=== PATIENT | female | born 1935 | race Caucasian/White ===

== ENCOUNTER → 2020-05-16 | Outpatient (CLI) | payer MEDICARE, OTHER, SELFPAY ==
[2020-05-16 17:00] LABS: Absolute Lymphocyte Count 1.04 X10^3/uL (0.83-4.51); Absolute Neutrophil Count 3.8 X10^3/uL (2.0-7.7); Basophil# 0.03 X10^3/uL; Basophil% 0.5 % (0-1); Eosinophil# 0.21 X10^3/uL; Eosinophils% 3.7 % (0-5); Hematocrit 33.8 % (37-47); Hemoglobin 9.9 g/dL (12.0-15.0); Lymphocyte # 1.04 X10^3/ul (4.0); Lymphocyte % 18.5 % (19-41); Mean Corp Hgb Conc 29.3 g/dL (32-36); Mean Corpuscular Hgb 24.8 pg (27.0-32.0); Mean Corpuscular Volume 84.5 fL (81-99); Monocyte# 0.51 X10^3/uL; Monocyte% 9.1 % (0-10); NRBC Flagged by Analyzer 0 % (0-5); Neutrophil # 3.81 X10^3/uL (2.7-7.7); Platelet Count 259 K/mm3 (150-450); RBC Distribution Width CV 15.1 % (11.6-14.6); RBC Distribution Width SD 46.5 fl (35.1-43.9); White Blood Count 5.6 K/mm3 (4.4-11.0)
[2020-05-16 17:16] LABS: Vitamin B12 264 pg/mL (211-911)
[2020-05-16 17:26] LABS: Anion Gap 5 (5-15); BUN 16 mg/dL (7-18); BUN/Creat Ratio 19.1 RATIO (10-20); Calcium,Total 8.9 mg/dL (8.5-10.1); Chloride 107 mmol/L (98-107); Creatinine, Serum 0.84 mg/dL (0.55-1.02); EST Glomerular Filtration Rate 69 mL/min (>60); Est Glom Filt Rate - Afr Amer 84 mL/min (>60); Glucose 97 mg/dL (74-106); Potassium 3.6 mmol/L (3.5-5.1); Sodium Level 140 mmol/L (136-145); Thyroid Stim Hormone (TSH) 1.66 uIU/mL (0.358-3.74)
== END | disposition home or self-care (01) ==
LOC: BFHLAB 14:12
PROVIDERS: Visit Provider Family Medicine
DX: I10 Essential (primary) hypertension (principal); R53.83 Other fatigue
CPT/HCPCS: 36415; 80048; 82607; 84443; 85025

== ENCOUNTER → 2020-07-24 11:16 | Outpatient (CLI) | payer MEDICARE, OTHER, SELFPAY ==
[2020-07-24 15:01] LABS: Absolute Lymphocyte Count 1.03 X10^3/uL (0.83-4.51); Basophil# 0.03 X10^3/uL; Basophil% 0.6 % (0-1); Eosinophil# 0.21 X10^3/uL; Eosinophils% 4.5 % (0-5); Hematocrit 34.2 % (37-47); Hemoglobin 10.2 g/dL (12.0-15.0); Lymphocyte # 1.03 X10^3/ul (4.0); Lymphocyte % 21.9 % (19-41); Mean Corp Hgb Conc 29.8 g/dL (32-36); Mean Corpuscular Hgb 25.1 pg (27.0-32.0); Monocyte# 0.45 X10^3/uL; Monocyte% 9.6 % (0-10); NRBC Flagged by Analyzer 0 % (0-5); Neutrophil # 2.98 X10^3/uL (2.7-7.7); Neutrophil % 63.2 % (47-70); Platelet Count 261 K/mm3 (150-450); RBC Distribution Width CV 15.7 % (11.6-14.6); Red Blood Count 4.07 M/mm3 (4.2-5.4); White Blood Count 4.7 K/mm3 (4.4-11.0)
[2020-07-24 15:21] LABS: Vitamin B12 276 pg/mL (211-911)
== END ==
PROVIDERS: PCP Family Medicine; Visit Provider Family Medicine
DX: I10 Essential (primary) hypertension (principal); D51.9 Vitamin B12 deficiency anemia, unspecified
CPT/HCPCS: 36415; 82607; 85025

== ENCOUNTER 2020-10-02 15:55 | Emergency (ER) | payer MEDICARE, OTHER, SELFPAY ==
[2020-10-02 15:56] VITALS: BP 154/97; PULSE 101; RESP 18; TEMP 35.9; O2SAT 97; BMI 27.4
--- NOTE | 2020-10-02 16:15 | RAD_ITS ---
STUDY: X-RAY - UNILATERAL RIBS ( RIGHT ) WITH CHEST REASON FOR EXAM: Female, 85 years old. FELL YESTERDAY. PAIN IN RIGHT RIBS ON THE SIDE RADIATING TO BACK. TECHNIQUE - RIBS: 3 view(s) of the ribs. TECHNIQUE - CHEST: Single PA view of the chest. COMPARISON: None. FINDINGS - RIBS: Normal visualized ribs without a demonstrated fracture. FINDINGS - CHEST: The interstitium in the lung bases is slightly prominent likely due to chronic scarring. No consolidation or pleural effusion or pneumothorax is seen. Interstitial scarring is also present in the right upper lobe. There is no demonstrated pleural abnormality. Normal size heart. Normal mediastinum and brett. Normal visualized pulmonary arteries. There is atherosclerotic calcification of the aortic arch with tortuosity. There are diffuse degenerative changes of the visualized thoracic spine. Dextroscoliosis of the lumbar spine is present. Normal visualized ribs, clavicles, and shoulders. There is no demonstrated abnormality of the visualized soft tissue structures of the upper abdomen. RAD/Ribs Uni Min 3V w/PA Chest IMPRESSION: RIBS: Normal x-ray examination of the ribs. CHEST: Degenerative changes, as described above. No demonstrated acute cardiopulmonary process. Electronically Signed: Jh Heller MD at 16:57 EST , Service support ,
--- NOTE | 2020-10-02 16:59 | ED.DCSUM_ITS ---
- ER Visit Summary Date of Service: 10/02/20 Chief Complaint: [Fall] History of Present Illness: The patient is a 85 F [ presents to the emergency department with complaint of a fall that occurred yesterday morning] patient states that she had stepped off her front stoop to get the paper and she slipped in the snow and fell down onto her buttocks and she believes that the right posterior ribs struck the edge of the stoop. Patient did not strike her head. No loss of consciousness. She denies any neck pain. Patient initially did not think much of it and she did relatively well yesterday however when she woke up this morning she had worsening pain. Patient rates her pain an 8 out of 10. Pain is worse with movement. She denies feeling short of breath. She is not anticoagulated. She is not had any hematuria. She denies abdominal pain. Physical Examination: [HEENT-PERRLA, EOMI. Cranial nerves II through XII grossly intact. TMs clear. Mucous membranes moist. No adenopathy. Cardiovascular-regular rate and rhythm without murmur or ectopy Lungs-clear to auscultation, chest wall stable without crepitus or subcu emphysema Abdomen-normoactive bowel sounds, soft, nontender, no rebound or rigidity, no peritoneal signs. Back exam-no significant tenderness over the thoracic spine. She does have tenderness palpation over the right posterior ribs that seems to reproduce her pain. There is no subcu emphysema. No ecchymosis or bruising noted. Extremities-intact ?4, normal range of motion, normal pulses, atraumatic] Test Results: [X-rays of the right ribs obtained 4 views read by myself and radiology as no acute fractures and no evidence of pneumothorax.] Emergency Department Course and Treatment: [Patient did not anything for pain in the department.] Treatment Plan: [Patient will be given incentive spirometer and a prescription for [place] for pain. At this point patient has no abdominal pain and she is not had any hematuria and it has been over 24 hours since the time of injury I do not feel any further imaging is indicated. I have low suspicion of solid organ injury and I discussed this with the patient and she is in agreement. Will follow up with her primary care physician 3 to 5 days. Patient advised to return if worsening pain, hemoptysis, hematuria, shortness of breath, or condition should worsen anyway.] Disposition: [Discharged home in stable condition] Impression: [Rib contusion-possible occult fracture Mechanical fall] This note was generated with Infrascale dictation software. It may contain incorrect words, spelling, and punctuation that were not noted in review of the chart prior to signing ED Disposition - Plan for ED Patient: Referrals: Chelsea Awad MD [Primary Care Provider] -
--- NOTE | 2020-10-02 17:09 | ED.DEP ---
ED Disposition - Plan for ED Patient: Instructions: ED Mechanical Fall, ED Rib Contusion or Minor Fracture Prescriptions: Hydrocodone Bitart/Apap 5-325 [[place] 5MG-325MG] 1 tab PO Q4H PRN PRN 2 Days #10 tab PRN Reason: Pain Prescription Printed Referrals: Chelsea Awad MD [Primary Care Provider] - 5-7 Days
[2020-10-02 18:00] VITALS: PULSE 71; RESP 16; O2SAT 99
--- NOTE | 2020-10-02 18:01 | ED.RN ---
THIS NURSE REVIEWED D/C INSTRUCTIONS WITH PT AND VISITOR. PT VERBALIZED UNDERSTANDING OF INSTRUCTIONS. PT DENIES FURTHER NEEDS OR QUESTIONS AT THIS TIME. PT AMBULATES FROM ROOM ON OWN WITHOUT ASSISTANCE FROM STAFF
== END 2020-10-02 18:02 | disposition home or self-care (01) ==
PROVIDERS: Emergency Provider Emergency Medicine; PCP Family Medicine
DX: S20.219A Contusion of unspecified front wall of thorax, initial encounter (principal); I10 Essential (primary) hypertension; Z79.899 Other long term (current) drug therapy; W00.1XXA Fall from stairs and steps due to ice and snow, initial encounter; Y93.89 Activity, other specified; Y92.008 Other place in unspecified non-institutional (private) residence as the place of occurrence of the external cause; Y99.8 Other external cause status
CPT/HCPCS: 71101; 99282

== ENCOUNTER → 2021-05-20 | Outpatient (CLI) | payer MEDICARE, OTHER, SELFPAY | END | disposition home or self-care (01) | LOC: LABSPEC 10:01 | PROVIDERS: PCP Family Medicine; Referring Provider Family Medicine; Visit Provider Family Medicine | DX: R19.7 Diarrhea, unspecified (principal) | CPT/HCPCS: 87493 ==

== ENCOUNTER → 2021-06-02 14:17 | Outpatient (CLI) | payer MEDICARE, OTHER, SELFPAY ==
--- NOTE | 2021-06-02 14:20 | CT_ITS ---
STUDY: CT ABDOMEN AND PELVIS WITH CONTRAST REASON FOR EXAM: Minimal degenerative changes on the lumbar spine with mild levoscoliosis., 85 years old. Bloating. Concern for ovarian pathology. RADIATION DOSAGE (If Supplied By Facility): CTDIvol = ( 17.91 ) mGy, DLP = ( 876.52 ) mGycm TECHNIQUE: Transaxial images were obtained from the dome of the diaphragm to the symphysis pubis with oral contrast. 100 mL of ISOVUE-300 was administered. Sagittal and coronal images were reconstructed. Individualized dose optimization techniques were used for this CT. COMPARISON: None. FINDINGS: The visualized lung bases are unremarkable. The visualized portions of the heart are within normal limits. Normal liver. Normal gallbladder and extrahepatic biliary system. Normal spleen. Normal pancreas. Normal bilateral adrenal glands. Normal right kidney. Normal left kidney. Normal ureters. Small hiatal hernia. The stomach is otherwise grossly unremarkable. Normal small intestine. Ethmoid diverticulosis without acute inflammatory change. The colon is otherwise grossly normal. The appendix is visualized and appears normal. Normal abdominal aorta. Normal inferior vena cava. Normal retroperitoneum. Normal urinary bladder. The uterine is normal in size. There is a small calcification in the fundus. No adnexal mass. No pelvic lymphadenopathy. No free air or free fluid seen within the peritoneal cavity. Evidence of midline surgical scar. The abdominal wall is otherwise unremarkable. CT/Abdomen/Pelvis WITH Contrast IMPRESSION: 1. Sigmoid diverticulosis with mild wall thickening thought to be chronic change. There is no acute inflammatory process. 2. Small calcification within the uterus. The uterus and adnexa are otherwise unremarkable. 3. Scoliosis and mild degenerative changes of the lumbar spine Electronically Signed: Miguel Angel Kim DO at 16:10 EDT Tel [phone], Service support ,
[2021-06-02 14:56] LABS: CREATININE FINGERSTICK 0.9 mg/dL (0.55-1.02); EGFR FINGERSTICK > 60.0000 mL/min (>60)
== END ==
PROVIDERS: PCP Family Medicine; Referring Provider Family Medicine; Visit Provider Family Medicine
DX: R14.0 Abdominal distension (gaseous) (principal)
CPT/HCPCS: 74177; Q9967; A4216

== ENCOUNTER 2021-07-14 11:32 | Day surgery (SDC) | payer MEDICARE, OTHER, SELFPAY ==
[2021-07-14] VITALS (7 sets, daily range): BP systolic 110–144; BP diastolic 67–89; PULSE 65–99; RESP 16; TEMP 35.7–36.8; O2SAT 96–100; BMI 27.8
--- NOTE | 2021-07-14 | IMM_PTH ---
PATIENT: MAYKEL KAY LOC: EN U#:[id number] AGE/SX: 85/F ROOM: RE07/14/[address]: Dr. Santi Woods DO : 1935 BED: DIS: 07/14/2021 SPEC #: [id number] RECD: 07/17/21 11:25 STATUS: ARIADNA REHoward #: [id number] LISA: 07/14/21 00:[address]: Santi Woods DEPT: IMMUNOHISTOCHEMISTRY RECD BY: Leland Feldman ENTERED: 07/17/21 11:27 SP TYPE: IMMUNO OTHR DR: Dr. Chelsea Awad MD Tissues: Gastric mucous membrane Procedures: Synapto (add) CD138 (add) CD20 (add) CD45 (add) CD5 (add) CD56 (add) CD79A (add) CHROMO (add) CK8 (add) KAPPA (add) KI-67 (add) LAMBDA (add) Vimentin (add) H.PYLORI (add) Pankeratin (add) CD3 (initial) PHYSICIAN & [address] [address] SPECIMEN INFORMATION: Tissue Source: Antral polyp Clinical Info: Abdominal pain, diarrhea Specimen Number: [id number] CPT code: 13660, 63531 x15 METHODOLOGY: Deparaffinized sections of prefer/formalin-fixed tissue or PAP/DQ stained slides are incubated with monoclonal/polyclonal antibodies/oligonucleotide probes. Localization is made via biotin free immunoperoxidase method. Appropriate controls are performed and reacted as expected. Results on target cell population are indicated in the following table: RESULTS: ANTIBODY / CLONE RESULT Block B CD3 (PS1) negative CD5 (SP10) negative CD20 (L26) negative CD45 (RP2/18) negative CD79a (11E3) negative H Pylori (polyclonal) negative Ki-67 (30-9) positive, low (~2%) AE1-3 (AE1/AE3/PCK26) positive CK8 (94yardG11) positive Vimentin (V9) negative CD138 (B-A38) negative Mora (polyclonal) negative Lambda (polyclonal) negative Chromo (LK2H10) positive Synapto (polyclonal) positive CD56 (123C3.D5) positive, weak These tests were developed and their performance characteristics determined by Laboratory. They may not have been cleared or approved by the U.S. Food and Drug Administration. The FDA has determined that such clearance or approval is not necessary. The above immunohistochemical/dualISH markers are ordered and reviewed by the Pathologist. INTERPRETATION: B. Antral polyp, biopsy: Well differentiated neuroendocrine tumor (carcinoid tumor). - negative for H. pylori organisms. SJ:tamar 07/21/2021
[2021-07-14] MEDS: Lactated Ringers 1,000 ML 15 ML IV (11:50)
--- NOTE | 2021-07-14 12:45 | EGD_PTH ---
PATIENT: MAYKEL KAY LOC: EN U#:[id number] AGE/SX: 85/F ROOM: RE07/14/[address]: Dr. Santi Woods DO : 1935 BED: DIS: 07/14/2021 SPEC #: [id number] RECD: 07/14/21 15:06 STATUS: ARIADNA REHoward #: [id number] LISA: 07/14/21 12:[address]: Santi Woods DEPT: SURGICAL PATHOLOGY RECD BY: Coby Cunha ENTERED: 07/15/21 08:41 SP TYPE: EGD BIOPSY OT DR: Dr. Chelsea Awad MD Tissues: A - Duodenum, NOS B - Gastric mucous membrane C - Stomach, NOS D - COLON BIOPSY Procedures: Trichrome (control) Special Stain Group II Surgery Specimen Level IV Alcian Blue/PAS (control) HEADER OPERATION: EGD colonoscopy PRE-OP DIAGNOSIS: Abdominal pain, diarrhea TISSUE SUBMITTED: A. Duodenum biopsy, B. Antral polyp biopsy, C. GE junction biopsy, D. Random colon biopsy MICROSCOPIC DIAGNOSIS A. Duodenum, biopsy: Fragments of duodenal mucosa with mild nonspecific chronic inflammation. B. Antral polyp, biopsy: Well differentiated neuroendocrine tumor (carcinoid tumor) arising in the background of hyperplastic/inflammatory polyp. See comment. C. GE junction, biopsy: Fragments of gastroesophageal mucosa with chronic inflammation. Intestinal metaplasia (goblet cell metaplasia) not identified. See comment. D. Colon, random biopsy: Focal changes consistent with collagenous colitis. See comment. SJ:rg 07/21/2021 COMMENT B. Immunohistochemistry ([id number]) supports the above diagnosis. The results of immunohistochemistry for Helicobacter pylori will be reported separately ([id number]). C. Alcian blue/PAS stain with matched control is used in the evaluation of the specimen. D. Trichrome stain with matched control is used in the evaluation of the specimen and shows focal thickening of subepithelial collagen band, consistent with collagenous colitis. MICROSCOPIC DESCRIPTION Slides are reviewed. GROSS DESCRIPTION A. Received is one container labeled with the patient name and designated duodenum. The specimen consists of multiple irregular fragments of light taylor soft tissue that in aggregate measure 0.5 x 0.3 x 0.1 cm. The specimen is totally submitted in one cassette. B. Received is one container labeled with the patient name and designated antral polyp. The specimen consists of multiple irregular fragments of light taylor soft tissue that in aggregate measure 1 x 0.5 x 0.1 cm. The specimen is totally submitted in one cassette. C. Received is one container labeled with the patient name and designated GE junction biopsy. The specimen consists of multiple irregular fragments of light taylor soft tissue that in aggregate measure 0.5 x 0.5 x 0.1 cm. The specimen is totally submitted in one cassette. D. Received is one container labeled with the patient name and designated random colon biopsy. The specimen consists of multiple irregular fragments of light taylor soft tissue that in aggregate measure 2 x 1 x 0.1 cm. The specimen is totally submitted in one cassette. / SJ:cc 07/15/21 TC:1 [facility]: 68242 x4, 10210 x2 ADDENDUM ADDENDUM ADDENDUM ADDENDUM ADDENDUM ADDENDUM ADDENDUM ADDENDUM ADDENDUM ADDENDUM ADDENDUM ADDENDUM ADDENDUM ADDENDUM ADDENDUM ADDENDUM ADDENDUM ADDENDUM 01/28/2022 10:16 ADDENDUM 01/28/2022 10:16 ADDENDUM 01/28/2022 10:16 ADDENDUM 01/28/2022 10:16 ADDENDUM 01/28/2022 10:16 This addendum is added to incorporate an outside pathology consultation report. The case was examined at [facility] (#[id number]) and the following diagnosis was rendered. A. Duodenum, biopsy: Small bowel mucosa, no significant pathologic changes. B. Antral polyp, biopsy: Well-differentiated neuroendocrine tumor (1.2 mm but present at deep margin of biopsy) in background of hyperplastic antral mucosa. C. GE junction, biopsy: Squamous and columnar mucosa with mild chronic inflammation. No goblet cells present. D. Colon, random biopsy: Colonic mucosa with focal changes suggestive of collagenous colitis. Please see complete above mentioned consultation report in EMR
--- NOTE | 2021-07-14 12:51 | PCM.HP.BLA ---
History and Physical Date of Admission: 07/14/21 Details: MAYKEL KAY, is a 85 F who presents to the office today for She has been having difficulty with loose stools upwards of three times a day. This is something that has been an issue for several years. Takes immodium and this works for a couple of days. Difficulty with bloating, belching and grumbling. She states it comes and goes - indicating flares but isn't able to give more information. Denies blood or mucous. CT performed 06/02/21 with findings Sigmoid diverticulosis with mild wall thickening thought to be chronic change. There is no acute inflammatory process. Small calcification within the uterus. Scoliosis and mild degenerative changes of the lumbar spine. Colonoscopy and EGD performed 2016 stated she had an elongated colon and was not able to visualize entire colon. Barium swallow performed with no abnormals. ROS Const Constitutional: Positive for fatigue and weight change ENT ENT: Positive for hearing loss and nasal congestion Gastro GI: Positive for abdominal pain, bloating, change in bowel habits, diarrhea and heartburn Musc Musculoskeletal: Positive for joint pain, back pain, muscle weakness, numbness, stiffness, tingling and Arthritis Neuro Neurology: Positive for numbness and tingling Endo Endocrine: Positive for fatigue and weight change Exam Const General: cooperative and comfortable Nutritional Appearance: average body habitus and well nourished [facility] Head: normal to inspection Ears: hearing grossly normal bilaterally Nose: external nose normal Face and sinus: normal facial exam Mouth: oral mucosae normal Throat: posterior oropharynx normal Eyes General: appearance normal, both eyes and all related structures Neck Neck: normal visual inspection Chest Chest palpation & inspection: normal inspection of the chest and normal palpation of entire chest wall Resp Effort & Inspection: normal respiratory effort Auscultation: Bilateral: Clear to Auscultation Cardio Palpation: normal PMI Rate: regular rate Rhythm: regular rhythm GI Inspection: normal to inspection Auscultation: normal bowel sounds Percussion: normal to percussion Palpation: no hepatosplenomegaly Skin General: no rashes or lesions noted Neuro General: patient alert Extrem General: normal to inspection Psych Affect: normal affect Quality Reporting Tobacco Screening ([facility] 138) Smoking Status: Unknown if ever smoked Assessment and Plan Assessment and Plan (1) Abdominal pain: Status: Acute Orders: Orders: Colonoscopy 07/07/21 EGD 07/07/21 Plan - Dr. Hancock Friend, DO: Differential diagnosis for abdominal pain would be peptic ulcer disease, atypical esophagitis, gastritis. Also deserves diagnosis could be chronic ischemic colitis, functional abdominal pain secondary to bacterial overgrowth, diverticular disease with or without segmental colitis. She will have an evaluation of her upper and lower GI tract. (2) Diarrhea: Status: Acute Plan - Dr. Hancock Friend, DO: The differential diagnosis for diarrhea would be microscopic colitis, lymphocytic colitis less likely inflammatory bowel disease or infectious colitis. We will perform a colonoscopy and evaluated lower GI tract into the terminal ileum. We will take random biopsies well. We will also take stool cultures, fecal lactoferrin and C. difficile. I have re-examined the patient. There are no clinical changes since date of exam.
--- NOTE | 2022-04-23 06:38 | OP.EGD_ITS ---
Patient Name: Deb Bartholomew Procedure Date: 07/14/2021 12:51 PM Date of : 1935 Age: 85 Procedure: Upper GI endoscopy Indications: Epigastric abdominal pain, Functional Dyspepsia Providers: Santi Woods DO Medicines: General Anesthesia, See the Anesthesia note for documentation of the administered medications Patient Profile: This is an 85 year old female. Refer to note in patient chart for documentation of history and physical. Patient has symptoms of acute abdominal cramping and chronic abdominal distention. Complications: No immediate complications. Procedure: Pre-Anesthesia Assessment: - Prior to the procedure, a History and Physical was performed, and patient medications and allergies were reviewed. The patient is competent. The risks and benefits of the procedure and the sedation options and risks were discussed with the patient. All questions were answered and informed consent was obtained. Patient identification and proposed procedure were verified by the physician in the pre-procedure area. Mental Status Examination: alert and oriented. Airway Examination: normal oropharyngeal airway and neck mobility. Respiratory Examination: clear to auscultation. CV Examination: normal. Prophylactic Antibiotics: The patient does not require prophylactic antibiotics. Prior Anticoagulants: The patient has taken no previous anticoagulant or antiplatelet agents. ASA Grade Assessment: II - A patient with mild systemic disease. After reviewing the risks and benefits, the patient was deemed in satisfactory condition to undergo the procedure. The anesthesia plan was to use moderate sedation / analgesia (conscious sedation). Immediately prior to administration of medications, the patient was re-assessed for adequacy to receive sedatives. The heart rate, respiratory rate, oxygen saturations, blood pressure, adequacy of pulmonary ventilation, and response to care were monitored throughout the procedure. The physical status of the patient was re-assessed after the procedure. After obtaining informed consent, the endoscope was passed under direct vision. Throughout the procedure, the patient's blood pressure, pulse, and oxygen saturations were monitored continuously. The gastroscope was introduced through the and advanced to the. The gastroscope was introduced through the mouth, and advanced to the second part of duodenum. The upper GI endoscopy was accomplished without difficulty. The patient tolerated the procedure well. Moderate Sedation: Moderate (conscious) sedation was administered by the endoscopy nurse and supervised by the endoscopist. The patient's oxygen saturation, heart rate, blood pressure and response to care were monitored. Total physician intraservice time was 15 minutes. Scope In: 1:01:27 PM Scope Out: 1:10:00 PM Total Procedure Duration Time 0 hours 8 minutes 33 seconds Findings: LA Grade A (one or more mucosal breaks less than 5 mm, not extending between tops of 2 mucosal folds) esophagitis with no bleeding was found 34 to 35 cm from the incisors. Biopsies were taken with a cold forceps for histology. Verification of patient identification for the specimen was done. Estimated blood loss was minimal. A few 5 mm sessile polyps with no stigmata of recent bleeding were found in the stomach. These polyps were removed with a hot snare. Resection and retrieval were complete. Verification of patient identification for the specimen was done. Estimated blood loss was minimal. Scattered mild inflammation characterized by congestion (edema) was found in the second portion of the duodenum. Biopsies were taken with a cold forceps for histology. Verification of patient identification for the specimen was done. Estimated blood loss was minimal. Biopsies were taken with a cold forceps for histology. Verification of patient identification for the specimen was done. Estimated blood loss was minimal. Impression: - LA Grade A reflux esophagitis. Biopsied. - A few gastric polyps. Resected and retrieved. - Duodenitis. Biopsied. Recommendation: - Discharge patient to home. - Resume previous diet. - Continue present medications. - Await pathology results. - Return to my office in 2 weeks. Procedure Code(s): --- Professional --- 07018, 59, Esophagogastroduodenoscopy, flexible, transoral; with removal of tumor(s), polyp(s), or other lesion(s) by snare technique 72603, 59, Esophagogastroduodenoscopy, flexible, transoral; with biopsy, single or multiple G0500, Moderate sedation services provided by the same physician or other qualified health childcare director performing a gastrointestinal endoscopic service that sedation supports, requiring the presence of an independent trained observer to assist in the monitoring of the patient's level of consciousness and physiological status; initial 15 minutes of intra-service time; patient age 5 years or older (additional time may be reported with 47137, as appropriate) Diagnosis Code(s): --- Professional --- K21.0, Gastro-esophageal reflux disease with esophagitis K31.7, Polyp of stomach and duodenum K29.80, Duodenitis without bleeding R10.13, Epigastric pain K30, Functional dyspepsia CPT copyright 2017 [employer]. All rights reserved. The codes documented in this report are preliminary and upon customer engagement manager review may be revised to meet current compliance requirements. Santi Woods DO 07/14/2021 1:44:38 PM This report has been signed electronically. Number of Addenda: 1 Note Initiated On: 07/14/2021 12:51 PM Addendum Number: 1 Addendum Date: 04/23/2022 6:33:17 AM MAC was used instead of moderate sedation for this patient. Santi Woods DO 04/23/2022 6:33:24 AM This report has been signed electronically.
--- NOTE | 2022-04-23 06:38 | OP.COLON_ITS ---
Patient Name: Deb Bartholomew Procedure Date: 07/14/2021 1:11 PM Date of : 1935 Age: 85 Procedure: Colonoscopy Indications: Chronic diarrhea, Clinically significant diarrhea of unexplained origin Providers: Santi Woods DO Medicines: See the Anesthesia note for documentation of the administered medications Patient Profile: This is an 85 year old female. Refer to note in patient chart for documentation of history and physical. Patient has symptoms of acute abdominal cramping and chronic abdominal distention. Last Colonoscopy: 10 years ago. Complications: No immediate complications. Procedure: Pre-Anesthesia Assessment: - Prior to the procedure, a History and Physical was performed, and patient medications and allergies were reviewed. The patient is competent. The risks and benefits of the procedure and the sedation options and risks were discussed with the patient. All questions were answered and informed consent was obtained. Patient identification and proposed procedure were verified by the physician in the pre-procedure area. Mental Status Examination: alert and oriented. Airway Examination: normal oropharyngeal airway and neck mobility. Respiratory Examination: clear to auscultation. CV Examination: normal. Prophylactic Antibiotics: The patient does not require prophylactic antibiotics. Prior Anticoagulants: The patient has taken no previous anticoagulant or antiplatelet agents. ASA Grade Assessment: II - A patient with mild systemic disease. After reviewing the risks and benefits, the patient was deemed in satisfactory condition to undergo the procedure. The anesthesia plan was to use moderate sedation / analgesia (conscious sedation). Immediately prior to administration of medications, the patient was re-assessed for adequacy to receive sedatives. The heart rate, respiratory rate, oxygen saturations, blood pressure, adequacy of pulmonary ventilation, and response to care were monitored throughout the procedure. The physical status of the patient was re-assessed after the procedure. After I obtained informed consent, the scope was passed under direct vision. Throughout the procedure, the patient's blood pressure, pulse, and oxygen saturations were monitored continuously. The Colonoscope was introduced through the and advanced to. The Colonoscope was introduced through the anus and advanced to the terminal ileum. The colonoscopy was performed without difficulty. The patient tolerated the procedure well. The quality of the bowel preparation was good. Moderate Sedation: Moderate (conscious) sedation was administered by the endoscopy nurse and supervised by the endoscopist. The patient's oxygen saturation, heart rate, blood pressure and response to care were monitored. Total physician intraservice time was 15 minutes. Scope In: 1:15:56 PM Scope Withdrawal Time 0 hours 13 minutes 6 seconds Scope Out: 1:36:42 PM Total Procedure Duration Time 0 hours 20 minutes 46 seconds Findings: The perianal and digital rectal examinations were normal. Scattered small and large-mouthed diverticula were found in the sigmoid colon, descending colon and splenic flexure. There was no evidence of diverticular bleeding. An area of moderately congested mucosa was found in the sigmoid colon, in the descending colon, at the splenic flexure, in the transverse colon, at the hepatic flexure and in the ascending colon. Biopsies were taken with a cold forceps for histology. Verification of patient identification for the specimen was done. Estimated blood loss was minimal. The terminal ileum appeared normal. Impression: - Moderate diverticulosis in the sigmoid colon, in the descending colon and at the splenic flexure. There was no evidence of diverticular bleeding. - Congested mucosa in the sigmoid colon, in the descending colon, at the splenic flexure, in the transverse colon, at the hepatic flexure and in the ascending colon. Biopsied. - The examined portion of the ileum was normal. Recommendation: - Discharge patient to home. - Resume previous diet. - Continue present medications. - Await pathology results. - Use Entocort EC (budesonide) 6 mg PO one time per day for 8 weeks. - No repeat colonoscopy due to current age (66 years or older). Procedure Code(s): --- Professional --- 59853, Colonoscopy, flexible; with biopsy, single or multiple G0500, Moderate sedation services provided by the same physician or other qualified health after school caregiver performing a gastrointestinal endoscopic service that sedation supports, requiring the presence of an independent trained observer to assist in the monitoring of the patient's level of consciousness and physiological status; initial 15 minutes of intra-service time; patient age 5 years or older (additional time may be reported with 81633, as appropriate) CPT copyright 2017 [employer]. All rights reserved. The codes documented in this report are preliminary and upon material reprocessing associate review may be revised to meet current compliance requirements. Santi Woods DO 07/14/2021 1:52:03 PM This report has been signed electronically. Number of Addenda: 1 Note Initiated On: 07/14/2021 1:11 PM Addendum Number: 1 Addendum Date: 04/23/2022 6:33:35 AM MAC was used instead of moderate sedation for this patient. Santi Woods DO 04/23/2022 6:33:40 AM This report has been signed electronically.
== END 2021-07-14 14:32 | disposition home or self-care (01) ==
LOC: EN 11:33 → AC 11:35
PROVIDERS: PCP Family Medicine; Referring Provider Family Medicine; Visit Provider Internal Medicine Gastroenterology
PROC: 0DJD8ZZ Inspection of Lower Intestinal Tract, Via Natural or Artificial Opening Endoscopic (ICD-10-PCS; CPT 45378; principal; 2021-07-14 12:40)
DX: D3A.092 Benign carcinoid tumor of the stomach (principal); K21.00 Gastro-esophageal reflux disease with esophagitis, without bleeding; K57.30 Diverticulosis of large intestine without perforation or abscess without bleeding; K29.80 Duodenitis without bleeding; M19.90 Unspecified osteoarthritis, unspecified site; I10 Essential (primary) hypertension; Z79.899 Other long term (current) drug therapy
CPT/HCPCS: 43239; 45380; 88305; 88313; 88341; 88342; J7120; J2405

== ENCOUNTER → 2021-07-28 14:49 | Outpatient (CLI) | payer MEDICARE, OTHER, SELFPAY ==
--- NOTE | 2021-07-28 14:30 | PET_ITS ---
EXAMINATION: FDG PET-CT INDICATIONS: An 85-year-old female with reported history of neuroendocrine neoplasm presenting for initial staging examination. COMPARISON EXAMINATION: CT of the abdomen-pelvis report dated 06/02/21 TECHNIQUE: Following the intravenous administration of 15.4 mCi of F-18 deoxyglucose via the right antecubital fossa, multiplanar image acquisitions of the neck, chest, abdomen and pelvis to level of mid thigh, obtained at one hour post radiopharmaceutical administration contemporaneously interpreted with the current CT of the neck, chest, abdomen and pelvis, to level of mid thigh, dated 07/28/[address] of the abdomen-pelvis report dated 06/02/21 reveals: BLOOD GLUCOSE LEVEL:?? 102 mg/dl?HEIGHT:?62 inches?WEIGHT: 150 lbs. FINDINGS: 1. There is no quantitative scintigraphic evidence of abnormal increased glucose metabolism on meticulous inspection of whole body acquisitions to include all three axis reconstructions. 2. Normal physiologic distribution of the radiopharmaceutical is apparent in the hepatic and splenic parenchyma, both renal units, bladder and visualized intestinal tract. The visualized portion of the cerebral cortical-subcortical structures demonstrate symmetric and preserved glucose metabolism. Diffuse radiopharmaceutical concentration is noted in all four quadrants of the abdomen and pelvis. Pertinent CT findings are as follows: CHEST: There is atherosclerotic calcification defined in the thoracic aorta without evidence of dilatation-aneurysm formation. Bilateral axillary soft tissue densities with fatty hilus are ametabolic. There are no parenchymal densities-nodules defined in the right and left hemithorax with discernible increased FDG uptake. ABDOMEN AND PELVIS: There is atherosclerotic calcification defined in the abdominal aorta without evidence of dilatation-aneurysm formation. Pelvic arterial calcification is defined. A fat containing paraumbilical hernia is encountered. Colonic diverticulosis is visualized without evidence of diverticulitis. Calcification is observed in the lower pelvis associated with the uterus without evidence of increased tracer uptake. SKELETAL: Degenerative changes are noted in the cervical, thoracic and lumbar spine without evidence of increased radiopharmaceutical concentration. PET/PET/CT Tumor Base -Thigh Init IMPRESSION: 1. NEGATIVE EXAMINATION. There is no definitive quantitative scintigraphic evidence of viable neoplasm. Electronic Signature Hugh Black, D.O. Accurate Quantification of SUVs for this report are calculated using the exclusive [employer], (U.S. Patent No. [id number], [id number] 983). Standardization and correction of the FDG SUV metric exclusively available with [employer] intellectual property, allow for vendor non-specific objective quantitative sequential FDG PET-CT comparison and otherwise unobtainable optimization of the sensitivity and specificity of the examination. Electronically Signed: Hugh Weeks DO at 17:14 EST Tel , Service support ,
== END ==
PROVIDERS: PCP Family Medicine; Referring Provider Internal Medicine Gastroenterology; Visit Provider Internal Medicine Gastroenterology
DX: C7A.8 Other malignant neuroendocrine tumors (principal)
CPT/HCPCS: 78815; A9552

== ENCOUNTER 2021-11-27 10:12 | Day surgery (SDC) | payer MEDICARE, OTHER, SELFPAY ==
[2021-11-27] VITALS (9 sets, daily range): BP systolic 88–147; BP diastolic 7–93; PULSE 70–79; RESP 16; TEMP 36.4–36.9; O2SAT 97–100; BMI 28.2
[2021-11-27] MEDS: Lactated Ringers 1,000 ML 15 ML IV (10:54)
--- NOTE | 2021-11-27 11:30 | EGD_PTH ---
PATIENT: MAYKEL KAY LOC: EN U#:[id number] AGE/SX: 86/F ROOM: RE11/27/[address]: Dr. Santi Woods DO : 1935 BED: DIS: 11/27/2021 SPEC #: [id number] RECD: 11/27/21 13:26 STATUS: ARIADNA MARS #: [id number] LISA: 11/27/21 11:[address]: Santi Woods DEPT: SURGICAL PATHOLOGY RECD BY: Coby Cunha ENTERED: 11/30/21 09:33 SP TYPE: EGD BIOPSY OT DR: Dr. Chelsea Awad MD Tissues: Gastric mucous membrane Procedures: Surgery Specimen Level IV HEADER OPERATION: EGD ([facility]) PRE-OP DIAGNOSIS: Neuroendocrine cancer, diarrhea TISSUE SUBMITTED: Gastric polyp MICROSCOPIC DIAGNOSIS Gastric polyp, biopsy: Fragments of hyperplastic gastric polyp with chronic inflammation. AM:tamar 12/01/2021 COMMENT The results of immunohistochemistry for Helicobacter pylori will be reported separately ([id number]). MICROSCOPIC DESCRIPTION Slides are reviewed. GROSS DESCRIPTION Received in fixative is one container labeled with the patient's name and designated gastric polyp biopsy. The specimen consists of multiple irregular fragments of light taylor soft tissue that in aggregate measure 2 x 1 x 0.1 cm. The specimen is totally submitted in one cassette. / AM:tamar 11/30/2021 TC:3 CPT: 65786
--- NOTE | 2021-11-27 11:30 | IMM_PTH ---
PATIENT: MAYKEL KAY LOC: EN U#:[id number] AGE/SX: 86/F ROOM: RE11/27/[address]: Dr. Santi Woods DO : 1935 BED: DIS: 11/27/2021 SPEC #: [id number] RECD: 11/30/21 09:40 STATUS: ARIADNA REHoward #: [id number] LISA: 11/27/21 11:[address]: Santi Woods DEPT: IMMUNOHISTOCHEMISTRY RECD BY: Jesika Harris ENTERED: 11/30/21 09:42 SP TYPE: IMMUNO OTHR DR: Dr. Chelsea Awad MD Tissues: Stomach, NOS Procedures: H Pylori (initial) PHYSICIAN & INSTITUTION [place] [id number] SPECIMEN INFORMATION: Tissue Source: Gastric polyp Clinical Info: Neuroendocrine cancer, diarrhea Specimen Number: [id number] CPT code: 67835 METHODOLOGY: Deparaffinized sections of prefer/formalin-fixed tissue or PAP/DQ stained slides are incubated with monoclonal/polyclonal antibodies/oligonucleotide probes. Localization is made via biotin free immunoperoxidase method. Appropriate controls are performed and reacted as expected. Results on target cell population are indicated in the following table: RESULTS: ANTIBODY / CLONE RESULT H Pylori (polyclonal) negative These tests were developed and their performance characteristics determined by [facility]. They may not have been cleared or approved by the U.S. Food and Drug Administration. The FDA has determined that such clearance or approval is not necessary. The above immunohistochemical/dualISH markers are ordered and reviewed by the Pathologist. INTERPRETATION: Gastric polyp, biopsy: Negative for Helicobacter pylori organisms. AM:tamar 12/01/2021
--- NOTE | 2021-11-27 12:23 | OP.EGD_ITS ---
Patient Name: Deb Bartholomew Procedure Date: 11/27/2021 10:22 AM Date of : 1935 Age: 86 Procedure: Upper GI endoscopy Indications: Epigastric abdominal pain Providers: Santi Woods DO Medicines: See the Anesthesia note for documentation of the administered medications Patient Profile: This is an 86 year old female. Refer to note in patient chart for documentation of history and physical. Patient has symptoms. Complications: No immediate complications. Procedure: Pre-Anesthesia Assessment: - Prior to the procedure, a History and Physical was performed, and patient medications and allergies were reviewed. The patient is competent. The risks and benefits of the procedure and the sedation options and risks were discussed with the patient. All questions were answered and informed consent was obtained. Patient identification and proposed procedure were verified by the physician. Mental Status Examination: alert and oriented. Airway Examination: normal oropharyngeal airway and neck mobility. Respiratory Examination: clear to auscultation. CV Examination: normal. Prophylactic Antibiotics: The patient does not require prophylactic antibiotics. Prior Anticoagulants: The patient has taken no previous anticoagulant or antiplatelet agents. ASA Grade Assessment: II - A patient with mild systemic disease. After reviewing the risks and benefits, the patient was deemed in satisfactory condition to undergo the procedure. The anesthesia plan was to use moderate sedation / analgesia (conscious sedation). Immediately prior to administration of medications, the patient was re-assessed for adequacy to receive sedatives. The heart rate, respiratory rate, oxygen saturations, blood pressure, adequacy of pulmonary ventilation, and response to care were monitored throughout the procedure. The physical status of the patient was re-assessed after the procedure. After obtaining informed consent, the endoscope was passed under direct vision. Throughout the procedure, the patient's blood pressure, pulse, and oxygen saturations were monitored continuously. The gastroscope was introduced through the mouth, and advanced to the second part of duodenum. The upper GI endoscopy was accomplished without difficulty. The patient tolerated the procedure well. Moderate Sedation: Moderate (conscious) sedation was administered by the endoscopy nurse and supervised by the endoscopist. The patient's oxygen saturation, heart rate, blood pressure and response to care were monitored. Total physician intraservice time was 15 minutes. Scope In: 11:52:50 AM Scope Out: 12:10:33 PM Total Procedure Duration Time 0 hours 17 minutes 43 seconds Findings: The examined esophagus was normal. A single 5 mm sessile polyp with no bleeding and no stigmata of recent bleeding was found in the gastric body. Polypectomy was attempted, initially using a hot snare. Polyp resection was incomplete with this device. This intervention then required a different device and polypectomy technique. The polyp was removed with a hot snare. Resection and retrieval were complete. The second portion of the duodenum was normal. Impression: - Normal esophagus. - A single gastric polyp. Resected and retrieved. - Normal second portion of the duodenum. Recommendation: - Discharge patient to home. - Resume previous diet. - Continue present medications. - Await pathology results. - Repeat upper endoscopy in 1 year for surveillance based on pathology results. Procedure Code(s): --- Professional --- 07960, Esophagogastroduodenoscopy, flexible, transoral; with removal of tumor(s), polyp(s), or other lesion(s) by snare technique 84629, 59, Moderate sedation services provided by the same physician or other qualified health daytime caregiver performing the diagnostic or therapeutic service that the sedation supports, requiring the presence of an independent trained observer to assist in the monitoring of the patient's level of consciousness and physiological status; initial 15 minutes of intraservice time, patient age 5 years or older CPT copyright 2017 [employer]. All rights reserved. The codes documented in this report are preliminary and upon remote coders review may be revised to meet current compliance requirements. Santi Woods DO 11/27/2021 12:22:56 PM This report has been signed electronically. Number of Addenda: 1 Note Initiated On: 11/27/2021 10:22 AM Addendum Number: 1 Addendum Date: 05/20/2022 6:43:57 AM MAC was used as sedation for this procedure. Santi Woods DO 05/20/2022 6:44:01 AM This report has been signed electronically.
--- NOTE | 2021-11-27 12:24 | OP.CCLET_ITS ---
05/20/2022 Chelsea Awad [id number] [facility] [address] [address] Re : Upper GI endoscopy procedure for Deb Bartholomew Dear Dr. Awad This procedure was performed on Saturday, November 27, 2021. My impressions and recommendations are as follows: Impressions : - Normal esophagus. - A single gastric polyp. Resected and retrieved. - Normal second portion of the duodenum. Recommendations : - Discharge patient to home. - Resume previous diet. - Continue present medications. - Await pathology results. - Repeat upper endoscopy in 1 year for surveillance based on pathology results. My findings are described in the full procedure note, which is enclosed. If I can be of further assistance, please feel free to contact me at . Sincerely, Santi Woods, 11/27/2021 12:22:56 PM This report has been signed electronically.
--- NOTE | 2021-11-27 13:00 | HP.PCM_ITS ---
History and Physical Date of Admission: 11/27/21 Chief Complaint: Diarrhea, stomach tumor Details: MAYKEL KAY, is a 86 F who presents to the office today for f/u gastric neuroendocrine tumor, chronic diarrhea, and discussion following her recent evaluation by Dr Tejeda at [facility] on 10/30/21. She established with our practice 06/19/21 for diarrhea; she was having multiple bouts of diarrhea daily for several years. She also had bloating, gas/belching, and RLQ pain. Her diarrhea improved significantly with budesonide 6 mg daily, but today she notes stools have been loose again for the past 3 wks. Has diarrhea as soon as she gets up and then again later in the morning. She has consistently had RLQ pain, it bothers her when she's lying in bed, also has right sciatica type pain when lying down; Dr Woods felt the RLQ pain was due more to osteoarthritis than of GI origin. Ongoing bloating and belching. CT 06/02/21 found diverticulosis 07/14/21 EGD and colonoscopy EGD: LA Grade A esophagitis, gastric polyps, duodenitis. Biopsy: neg H pylori; well differentiated neuroendocrine tumor (carcinoid tumor) arising in the b ackground of hyperplastic/inflammatory polyp. Colonoscopy: moderate diverticulosis in sigmoid colon, ascending colon and splenic flexure. Congested mucosa multiple regions. Biopsy: collagenous colitis Dr. Patel saw her 08/03/21 for neuroendocrine cancer: refer to [facility] medical (Dr. Tejeda) and surgical oncology (Dr. Rivera) for further work-up of subtype and management recommendations. Per Dr Tejeda's note recommendation is for Dr Woods to repeat EGD. Pt reports plan is to try to remove any remaining NET. Dr Tejeda has ordered triple phase CT which is scheduled for December 14; pt has virtual f/u with [facility] on December 30. She is anxious to know if those appt should be changed if EGD not yet done. ROS Const Constitutional: No fatigue ENT ENT: Positive for nasal congestion; No difficulty swallowing Gastro GI: Positive for abdominal pain, bloating, diarrhea, heartburn and excessive flatus; No belching, change in bowel habits, change in stool character, coffee ground emesis, constipation, cramping, difficulty swallowing, feeling full early, incontinent of stools, Vomiting blood/hematemesis, Blood in stool, loose stools, Black,tarry stools, nausea/dyspepsia, pain with swallowing, vomiting or other Musc Musculoskeletal: Positive for joint pain, back pain, stiffness, Arthritis and leg pain at night Skin Skin: No yellowing of the eye or itchy eyes Psych Psychiatric: No anxiety and No depression Endo Endocrine: No fatigue Aller/Imm Allergy/Immunologic: No itchy eyes Kuldip/Lymp Hematologic/Lymphatic: No easy bleeding or easy bruising Exam Const General: cooperative, comfortable, well developed and well groomed GI Inspection: obesity Palpation: soft and nontender Quality Reporting Tobacco Screening ([facility] 138) Smoking Status: Never smoker Assessment and Plan Assessment and Plan (1) Neuroendocrine cancer: Status: Acute (2) Diarrhea: Status: Acute Qualifiers: Diarrhea type: unspecified type Qualified Code(s): R19.7 - Diarrhea, unspecified Plan - Julia Wan TECHNOLOGIES DIVISION CHAIR, TECHNOLOGIES DIVISION CHAIR-C: 86-year-old female with chronic diarrhea and diagnosis of neuroendocrine tumor found in a biopsied gastric polyp. She is being evaluated by [facility], they have ordered CT triple phase. I will discuss case with Dr Woods so we can plan repeat EGD. Patient is anxious to know if she needs to change the dates of her CT and virtual visit follow-up with [facility] if she cannot have EGD done prior to those appointments. Budesonide 6 mg daily had been controlling her diarrhea until the past few weeks when it has become loose again, I will discuss that also with Dr. Woods, and will call patient to discuss. Plan Details Other Medications: I have re-examined the patient. There are no clinical changes since date of exam.
== END 2021-11-27 23:59 | disposition home or self-care (01) ==
LOC: EN 10:13 → AC 10:14
PROVIDERS: PCP Family Medicine; Referring Provider Family Medicine; Visit Provider Internal Medicine Gastroenterology
PROC: 0DJ08ZZ Inspection of Upper Intestinal Tract, Via Natural or Artificial Opening Endoscopic (ICD-10-PCS; CPT 43235; principal; 2021-11-27 11:25)
DX: K31.7 Polyp of stomach and duodenum (principal); R10.13 Epigastric pain; E66.9 Obesity, unspecified; I10 Essential (primary) hypertension; M19.90 Unspecified osteoarthritis, unspecified site; Z79.899 Other long term (current) drug therapy
CPT/HCPCS: 43251; 88305; 88342; J7120

== ENCOUNTER → 2021-12-14 12:55 | Outpatient (CLI) | payer MEDICARE, OTHER, SELFPAY ==
--- NOTE | 2021-12-14 13:05 | CT_ITS ---
EXAM: CT ABDOMEN AND PELVIS WITH INTRAVENOUS CONTRAST CLINICAL INDICATION: NEUROENDOCRINE CA TECHNIQUE: Helically acquired images were obtained of the abdomen and pelvis with and without intravenous contrast. This CT exam was performed using one or more of the following dose reduction techniques: automated exposure control, adjustment of the mA and/or kV according to patient size, and/or use of iterative reconstruction technique. This report was created using idemama report generation technology. Delayed imaging was performed. 3 phase exam. CONTRAST: IV 100mL Isovue-300 RADIATION DOSE: CTDIvol = 10.46 mGy, DLP = 1499.41 mGy-cm COMPARISON: CT-PET images and report from July 28, 2021 showing no evidence of neoplasm, mentioned small fat-containing periumbilical hernia, colonic diverticulosis, calcification pelvis, degenerative spine changes. CT report from June 02, 2021 mentioned sigmoid diverticulosis, small uterine calcification, scoliosis and degenerative spine changes. FINDINGS: LOWER THORAX: Unremarkable. Lung bases are clear. No cardiomegaly. No significant pericardial effusion. ABDOMEN: LIVER: Unremarkable. Homogeneous. No focal mass. GALLBLADDER AND BILE DUCTS: Tortuous gallbladder with a fold, no visible mass or stone. The common duct is 6 mm, upper limits of normal. No gallbladder distention or wall edema. PANCREAS: Unremarkable. No focal cystic or solid mass. SPLEEN: Unremarkable. Normal size without focal cystic or solid mass. ADRENALS: Unremarkable. No nodules. KIDNEYS AND URETERS: Unremarkable. Normal renal size and position. No hydronephrosis. STOMACH AND BOWEL: Mild scattered gas in small bowel. Moderate stool in the right colon. Mild gas and stool in much of the mid colon. Mild sigmoid diverticulosis, no evidence of diverticulitis. No stomach or bowel distention. PELVIS: APPENDIX: No evidence of acute appendicitis. BLADDER: Unremarkable. REPRODUCTIVE: Small punctate calcification in the uterus. No suspicious adnexal mass. ABDOMEN and PELVIS: INTRAPERITONEAL SPACE: Unremarkable. No ascites or other fluid collection. No free air. BONES/JOINTS: Mild degenerative changes at L4-L5. No spinal stenosis. No suspicious lytic or blastic abnormality. SOFT TISSUES: Small fat-containing umbilical hernia. Postoperative changes of the left paramedian ventral abdominal wall. VASCULATURE: Unremarkable. Abdominal aorta is non-dilated. LYMPH NODES: Unremarkable. No enlarged lymph nodes. CT/CT Abd/Pelvis W/WO Contrast IMPRESSION: No acute findings in the abdomen or pelvis. Mild sigmoid diverticulosis. No obvious acute inflammatory changes. Collapsed segments of sigmoid, cannot exclude very early or mild colitis but it is not convincing. Electronically Signed: Kalpana Cobb MD at 8:19 EDT ,
[2021-12-15 07:33] LABS: CREATININE FINGERSTICK 0.98 mg/dL (0.55-1.02); EGFR FINGERSTICK 57 mL/min (>60)
== END ==
PROVIDERS: PCP Family Medicine
DX: C7A.8 Other malignant neuroendocrine tumors (principal)
CPT/HCPCS: 74178; Q9967

== ENCOUNTER → 2022-06-02 | Outpatient (CLI) | payer MEDICARE, OTHER, SELFPAY ==
[2022-06-02 12:10] LABS: Absolute Lymphocyte Count 0.77 X10^3/uL (0.83-4.51); Absolute Neutrophil Count 4.7 X10^3/uL (2.0-7.7); Basophil# 0.02 X10^3/uL; Basophil% 0.3 % (0-1); Eosinophil# 0.14 X10^3/uL; Eosinophils% 2.3 % (0-5); Hematocrit 39.7 % (37-47); Lymphocyte # 0.77 X10^3/ul (0.83-4.51); Lymphocyte % 12.5 % (19-41); Mean Corp Hgb Conc 32.7 g/dL (32-36); Mean Corpuscular Hgb 31.1 pg (27.0-32.0); Mean Platelet Vol. 11.1 fl (6.2-12.0); Monocyte# 0.54 X10^3/uL; Monocyte% 8.8 % (0-10); NRBC Flagged by Analyzer 0 % (0-5); Neutrophil # 4.69 X10^3/uL (2.7-7.7); Neutrophil % 75.9 % (47-70); Platelet Count 214 K/mm3 (150-450); RBC Distribution Width CV 14.4 % (11.6-14.6); RBC Distribution Width SD 50.3 fl (35.1-43.9); Red Blood Count 4.18 M/mm3 (4.2-5.4); White Blood Count 6.2 K/mm3 (4.4-11.0)
[2022-06-02 12:24] LABS: Vitamin B12 199 pg/mL (211-911)
[2022-06-02 12:26] LABS: ALB/GLOB Ratio 1.1 RATIO (0.9-2.4); AST(SGOT) 16 U/L (15-37); Alanine Aminotransfer ALT/SGPT 23 U/L (13-56); Albumin, Serum 3.6 g/dL (3.2-5.0); Alkaline Phosphatase 62 U/L (45-117); Anion Gap 6 (5-15); BUN 15 mg/dL (7-18); BUN/Creat Ratio 13.3 RATIO (10-20); Calcium,Total 9.2 mg/dL (8.5-10.1); Chloride 107 mmol/L (98-107); Cholesterol 189 mg/dL (200); Creatinine, Serum 1.13 mg/dL (0.55-1.02); EST Glomerular Filtration Rate 49 mL/min (>60); Est Glom Filt Rate - Afr Amer 59 mL/min (>60); Globulin 3.3 g/dL (2.2-4.2); Glucose 94 mg/dL (74-106); High Density Lipoprotein 60 mg/dL; Potassium 3.8 mmol/L (3.5-5.1); Protein, Total 6.9 g/dL (6.4-8.2); Sodium Level 141 mmol/L (136-145); Triglycerides 213 mg/dL; Very Low Density Lipoprotein 43 mg/dL (5-40)
== END | disposition home or self-care (01) ==
LOC: BFHLAB 09:29
PROVIDERS: PCP Family Medicine; Visit Provider Family Medicine
DX: Z00.00 Encounter for general adult medical examination without abnormal findings (principal); I10 Essential (primary) hypertension; D51.9 Vitamin B12 deficiency anemia, unspecified
CPT/HCPCS: 36415; 80053; 80061; 82607; 85025

== ENCOUNTER → 2022-06-15 | Outpatient (CLI) | payer MEDICARE, OTHER, SELFPAY ==
[2022-06-19 09:47] LABS: Gastrin, Serum 2480 pg/mL (0-115)
== END | disposition home or self-care (01) ==
LOC: LAB 16:18
PROVIDERS: PCP Family Medicine; Visit Provider Nurse Practitioner Adult Health
DX: C7A.8 Other malignant neuroendocrine tumors (principal)
CPT/HCPCS: 36415; 82941

== ENCOUNTER → 2023-06-10 | Outpatient (CLI) | payer MEDICARE, OTHER, SELFPAY ==
[2023-06-10 12:26] LABS: Absolute Lymphocyte Count 0.81 X10^3/uL (0.83-4.51); Absolute Neutrophil Count 4.6 X10^3/uL (2.0-7.7); Basophil# 0.03 X10^3/uL; Basophil% 0.5 % (0-1); Eosinophil# 0.19 X10^3/uL; Eosinophils% 3.1 % (0-5); Hematocrit 45.6 % (37-47); Hemoglobin 14.8 g/dL (12.0-15.0); Lymphocyte # 0.81 X10^3/ul (0.83-4.51); Lymphocyte % 13.3 % (19-41); Mean Corp Hgb Conc 32.5 g/dL (32-36); Mean Corpuscular Hgb 31.7 pg (27.0-32.0); Mean Corpuscular Volume 97.6 fL (81-99); Monocyte# 0.45 X10^3/uL; Monocyte% 7.4 % (0-10); NRBC Flagged by Analyzer 0 % (0-5); Neutrophil # 4.59 X10^3/uL (2.7-7.7); Neutrophil % 75.5 % (47-70); Platelet Count 247 K/mm3 (150-450); RBC Distribution Width CV 13.1 % (11.6-14.6); RBC Distribution Width SD 47.1 fl (35.1-43.9); Red Blood Count 4.67 M/mm3 (4.2-5.4); White Blood Count 6.1 K/mm3 (4.4-11.0)
[2023-06-10 12:49] LABS: Vitamin B12 316 pg/mL (211-911)
[2023-06-10 13:21] LABS: ALB/GLOB Ratio 1.1 RATIO (0.9-2.4); AST(SGOT) 13 U/L (15-37); Alanine Aminotransfer ALT/SGPT 21 U/L (13-56); Albumin, Serum 3.8 g/dL (3.2-5.0); Alkaline Phosphatase 65 U/L (45-117); Anion Gap 8 (5-15); BUN 15 mg/dL (7-18); BUN/Creat Ratio 15.2 RATIO (10-20); Calcium,Total 9.3 mg/dL (8.5-10.1); Chloride 108 mmol/L (98-107); Creatinine, Serum 0.99 mg/dL (0.55-1.02); EST Glomerular Filtration Rate 57 mL/min (>60); Est Glom Filt Rate - Afr Amer 69 mL/min (>60); Globulin 3.4 g/dL (2.2-4.2); Glucose 112 mg/dL (74-106); Potassium 3.9 mmol/L (3.5-5.1); Protein, Total 7.2 g/dL (6.4-8.2); Sodium Level 140 mmol/L (136-145)
== END | disposition home or self-care (01) ==
LOC: BFHLAB 11:12
PROVIDERS: PCP Family Medicine; Visit Provider Family Medicine
DX: Z00.00 Encounter for general adult medical examination without abnormal findings (principal); I10 Essential (primary) hypertension; D51.9 Vitamin B12 deficiency anemia, unspecified
CPT/HCPCS: 36415; 80053; 82607; 85025

== ENCOUNTER → 2023-06-10 | Outpatient (CLI) | payer MEDICARE, OTHER, SELFPAY ==
--- NOTE | 2023-06-10 12:46 | RAD_ITS ---
STUDY: X-RAY - RIGHT KNEE REASON FOR EXAM: Female, 87 years old. Knee pain. TECHNIQUE: 4 view(s) of the knee. COMPARISON: None. FINDINGS: Osteopenia. Mild medial compartmental arthrosis. Normal lateral compartment. Slight lateral tilt and subluxation of the patella with mild arthrosis of the lateral patellofemoral compartment. Slight patellar marcelo. Normal soft tissues. 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 Slight patella marcelo. No acute abnormality or erosive changes Electronically Signed: Declan De Leon MD at 13:59 EDT ,
--- NOTE | 2023-06-10 12:47 | RAD_ITS ---
INDICATION: PAIN IN KNEES EXAMINATION/TECHNIQUE: X-RAY - LEFT XR Knee Complete 4 Views or More 4 VIEWS COMPARISON: No relevant prior comparison study available FINDINGS: SOFT TISSUES: No soft tissue swelling or gas. No radiopaque foreign body. BONES/JOINTS: No acute fracture or subluxation.. Minimal marginal degenerative spurs of the medial joint compartment. Preservation of the joint space.. No sclerotic or destructive changes observed. RAD/Knee 4 or More Views IMPRESSION: Minimal degenerative arthrosis. Electronically Signed: Jamey Sepulveda MD at 15:07 EDT ,
== END | disposition home or self-care (01) ==
LOC: MTRAD 12:42
PROVIDERS: PCP Family Medicine; Referring Provider Family Medicine; Visit Provider Family Medicine
DX: Z00.00 Encounter for general adult medical examination without abnormal findings (principal); M25.561 Pain in right knee; M25.562 Pain in left knee; I10 Essential (primary) hypertension; D51.9 Vitamin B12 deficiency anemia, unspecified
CPT/HCPCS: 36415; 73564; 80053; 82607; 85025

== ENCOUNTER 2023-08-04 14:00 | Outpatient (RCR) | payer MEDICARE, OTHER, SELFPAY ==
--- NOTE | 2023-07-12 11:44 | HP.PTEVAL_ITS ---
Patient's Visit Information Visit Information Visit Information: MAYKEL KAY is a 87 year old F referred to Physical Therapy by Dr. Chelsea Awad MD with a diagnosis of Knee arthritis. Date of Evaluation: 07/12/23 Physical Therapist: Sherman Quiroga, DPT, OCS, CSCS Visit Plan Frequency: 2x /Week Duration: 4-6 Weeks Plan: 2x/week for 4-6 weeks for 1. knee B strength adn AROM NWB to WB and progression to HEP. 2. Patient using activity modifcaiton and AROM at home to manage symptoms, given quad stretch prone today and will need gastroc stretcha dn HS stretch added to this with pics. MH as needed. Subjective Subjective: January of 2022 was helping dtr move and caught toe on step while carrying boxes and crashed knees. No problems at the time. had check up lately and had x rays of knees due to pain. has achiness much of time throbbing. Walks often from home to [place] and from her condominium with her dog and walks quickly. does not hurt too much Pain this week has been 4/10 and just achy sitting. Had injections in the right 10 days ago and it didn;t help at all. Pain is anterior and worse in am. Better as day goes on. Activitiy are pretty normal, Walks and drives and has steps to basement and does those OK. Basic ADLs are no problem. shops without increased pain. Hobbies: none now., No exercise other than walking as weather permits. Sleep is not interrupted. Pain knee pain: Pain Intensity (Out of 10): 1 Comment: worse in am Objective Objective: Walks i back to PT without antalgia today. Transfers I chair and bed. steps are reciprocal but obvious pain and funcitonal weakness on R LE descending. Requires rail. R>L Pain at joint line with palpation. AROM B knees 0-130 without pain. SLR without lag. quad max tight, HS min tight at -25 90/90 test, gastroc mod tight B at 0 DF AROM. Hip and ankle AROM WFL. - scour, - ant drawer, - vlagus and varus strength R knee ext 3+ and crepitus and pain, L 4-, HS 4 B, hip abd and ext 4-, flexion 4- and anbkles are 4 B. reflexes 2/3 patella and achilles. Balance/Special Test Scores Functional Gait Assessment Score: 27 % Disability: 10.0000 Lower Extremity Functional Score: 61 Goals Goal 1:: I appropriate HEP to minimize future problems with knee pain and degeneration Goal Time Frame: 4-6 Weeks Goal 2:: Pain 0-1/10 at all times and 75% better Goal Time Frame: 4-6 Weeks Goal 3:: patient ambulate in am with out antalgia or >1/10 pain Goal Time Frame: 4-6 Weeks Rehabilitation Potential Physical Therapy Diagnosis: R>L knee achiness from degeneration effecting mood and comfort with daily activities Rehabilitation Potential: Fair Anticipated Interventions Patient/Client Instruction: Educate patient on: Condition and Plan of Care For the Purpose of:: To decrease pain, To improve nutrient delivery to tissue and To improve muscle performance and motor function Therapeutic Exercise to Include: Strength training, Flexibilty training, Passive ROM and Active ROM For the Purpose of:: To decrease pain, To increase ROM, To improve nutrient delivery to tissue, To improve muscle performance and motor function and To increase tolerance to activity/condition/position Thermo therapy (hot pack): Yes For the Purpose of:: To decrease pain and To improve nutrient delivery to tissue Text: Thank you for the opportunity to evaluate your patient. For Medicare and Medicare HMO plans, please review the plan of care and approve it. It will need to be FAXED BACK to us at [phone] for Medicare purposes. For Medicare only, by signing this I certify the plan of care. Please let me know if there are questions or concerns regarding this plan of care. Physician Signature: Date:
--- NOTE | 2023-08-04 14:45 | HP.PTDCSUM ---
Discharge Summary D/C summary: It has been my pleasure to treat MAYKEL KAY referred by Dr. Chelsea Awad MD, with the diagnosis of Knee arthritis for a total of 7 visit(s). Discharge Date: Please see the following information for a summary of their discharge status. Subjective Subjective: Doing well, therapy has really helped her. Compliant with her HEP, has a good amount of exercises. Pain knee pain: Pain Intensity (Out of 10): 0 Overall Improvement % Improvement: 85 Objective Objective/Function: Pt making progress with her therapy, and feels she has the right amount of exercises for home now(does not have ankle wt's though) Goals Goal 1:: I appropriate HEP to minimize future problems with knee pain and degeneration Goal Progress: Goal Met Goal 2:: Pain 0-1/10 at all times and 75% better Goal Progress: Goal Met Goal 3:: patient ambulate in am with out antalgia or >1/10 pain Goal Progress: Goal Met Plan Plan: PT to reassess after this session D/C Information d/c sentence: If there are questions or concerns regarding this patient's physical therapy, please feel free to call me at [phone]. Thank you for the referral of this patient. Sincerely, Sehrman Quiroga, DPT, OCS, CSCS Balance/Gait/Functional tests Balance/Special Test Scores Functional Gait Assessment Score: 27 % Disability: 10.0000 Lower Extremity Functional Score: 61 Improvement % Improvement: 85
== END 2023-08-04 19:00 | disposition home or self-care (01) ==
LOC: PT 14:00
PROVIDERS: PCP Family Medicine; Referring Provider Family Medicine; Visit Provider Family Medicine
DX: M17.10 Unilateral primary osteoarthritis, unspecified knee (principal)
CPT/HCPCS: 97110; 97161; 97164

== ENCOUNTER 2024-01-30 10:44 | Day surgery (SDC) | payer MEDICARE, OTHER, SELFPAY ==
[2024-01-30 11:06] VITALS: BP 150/82; PULSE 91; RESP 16; TEMP 36.6; O2SAT 99; BMI 27.3
[2024-01-30] MEDS: Lactated Ringers 1,000 ML 15 ML IV (11:10)
--- NOTE | 2024-01-30 11:52 | PCM.HP.BLA ---
History and Physical Date of Admission: 01/30/24 f/u neuroendocrine tumor Details: MAYKEL KAY, is a 88 F who presents to the office today for follow up. OV 5.31.24 Pt reports that she is feeling pretty well overall GI carver. Pt reports 1-2 bm per day and states that they are loose 50% of the time, but is unsure of trigger. Pt does report that she has had some new stress in her personal life. Pt would like to discuss the effects of long-term pantoprazole use and is wondering if she needs to continue taking it. Pt states that she has been experiencing an increase in knee pain. ROS Const Constitutional: No fatigue, fever(s) or weight change ENT ENT: No difficulty swallowing Gastro GI: Positive for abdominal pain, bloating, diarrhea, heartburn and excessive flatus; No belching, change in bowel habits, change in stool character, coffee ground emesis, constipation, cramping, difficulty swallowing, feeling full early, incontinent of stools, Vomiting blood/hematemesis, Blood in stool, loose stools, Black,tarry stools, nausea/dyspepsia, pain with swallowing, vomiting or other Musc Musculoskeletal: Positive for joint pain, back pain, joint swelling, Arthritis and sciatica Skin Skin: No yellowing of the eye or itchy eyes Psych Psychiatric: No anxiety and No depression Endo Endocrine: No fatigue or weight change Aller/Imm Allergy/Immunologic: No itchy eyes Kuldip/Lymp Hematologic/Lymphatic: No easy bleeding or easy bruising Exam Const General: cooperative and comfortable Orientation: alert, awake and oriented x3 Assessment and Plan Assessment and Plan (1) Neuroendocrine cancer: Status: Acute Plan: We will perform an upper endoscopy to evaluate her stomach. 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 She is on twice a day PPI therapy now. I will decrease her down to 40 mg once a day and try to titrate to off. (2) Collagenous colitis: Status: Acute Plan: Now off budesonide, bowels are ok I have examined the patient and the H&P has been reviewed. There are no clinical changes since date of exam.
--- NOTE | 2024-01-30 12:00 | EGD_PTH ---
PATIENT: MAYKEL KAY LOC: EN U#:[id number] AGE/SX: 88/F ROOM: RE01/30/[address]: Dr. Santi Woods DO : 1935 BED: DIS: 01/30/2024 SPEC #: [id number] RECD: 01/30/24 14:20 STATUS: ARIADNA MARS #: [id number] LISA: 01/30/24 12:[address]: Santi Woods DEPT: SURGICAL PATHOLOGY RECD BY: Coby Cunha ENTERED: 01/31/24 09:54 SP TYPE: EGD BIOPSY OT DR: Dr. Chelsea Awad MD Tissues: A - Gastric mucous membrane B - Gastric mucous membrane Procedures: Surgery Specimen Level IV HEADER OPERATION: EGD with polyp removal PRE-OP DIAGNOSIS: Neuroendocrine cancer, colitis TISSUE SUBMITTED: A- Gastric antrum polyp, B- Gastric body polyp MICROSCOPIC DIAGNOSIS A. Gastric antrum polyp, excisional biopsy: Hyperplastic/inflammatory polyp. See comment. B. Gastric body polyp, excisional biopsy: Fragments of Hyperplastic/inflammatory polyp. See comment. HIEN/ 02/01/2024 COMMENT B. The results of immunohistochemistry for Helicobacter pylori will be reported separately ([id number]). Please make reference to previous specimen [id number] antral polyp, biopsy with diagnosis of well differentiated neuroendocrine tumor. This case has been reviewed in consultation with Dr. Landeros who concurs with the above diagnosis. MICROSCOPIC DESCRIPTION Slides are reviewed. GROSS DESCRIPTION A. Received in fixative is one container labeled with the patient's name and designated Gastric antrum polyp. The specimen consists a pink congested polyp measuring 1.0 x 0.8 x 0.7 cm. The apparent base is inked. This specimen is serially sectioned and submitted entirely in one cassette. B. Received in fixative is one container labeled with the patient's name and designated Gastric body polyp. The specimen consists of multiple irregular fragments of light taylor soft tissue that in aggregate measure 1.0 x 0.3 x 0.1 cm. The specimen is totally submitted in one cassette. HIEN/ 01/31/2024 TC:2 CPT:98670c5
--- NOTE | 2024-01-30 12:00 | IMM_PTH ---
PATIENT: MAYKEL KAY LOC: EN U#:[id number] AGE/SX: 88/F ROOM: RE01/30/[address]: Dr. Santi Woods DO : 1935 BED: DIS: 01/30/2024 SPEC #: [id number] RECD: 01/31/24 08:52 STATUS: ARIADNA REQ #: [id number] LISA: 01/30/24 12:[address]: Santi Woods DEPT: IMMUNOHISTOCHEMISTRY RECD BY: Alber Vazquez ENTERED: 01/31/24 08:52 SP TYPE: IMMUNO OTHR DR: Dr. Chelsea Awad MD Tissues: A - Gastric mucous membrane Procedures: H Pylori (initial) PHYSICIAN & INSTITUTION [place] [id number] SPECIMEN INFORMATION: Tissue Source: B- Gastric body polyp Clinical Info: Neuroendocrine cancer, colitis Specimen Number: [id number] CPT code: 06780 METHODOLOGY: Deparaffinized sections of prefer/formalin-fixed tissue or PAP/DQ stained slides are incubated with monoclonal/polyclonal antibodies/oligonucleotide probes. Localization is made via biotin free immunoperoxidase method. Appropriate controls are performed and reacted as expected. Results on target cell population are indicated in the following table: RESULTS: ANTIBODY / CLONE RESULT Block B H Pylori (polyclonal) negative These tests were developed and their performance characteristics determined by [facility]. They may not have been cleared or approved by the U.S. Food and Drug Administration. The FDA has determined that such clearance or approval is not necessary. The above immunohistochemical/dualISH markers are ordered and reviewed by the Pathologist. INTERPRETATION: B. Gastric body polyp , biopsy: Negative for Helicobacter pylori organisms. HIEN/ 02/01/2024
--- NOTE | 2024-01-30 12:40 | OP.EGD_ITS ---
Patient Name: Deb Bartholomew Procedure Date: 01/30/2024 12:13 PM Date of : 1935 Age: 88 Procedure: Upper GI endoscopy Indications: Epigastric abdominal pain Providers: DO Marilou Arriaga MD: Chelsea Awad Medicines: Monitored Anesthesia Care Complications: No immediate complications. Procedure: Pre-Anesthesia Assessment: - Prior to the procedure, a History and Physical was performed, and patient medications and allergies were reviewed. The patient is competent. The risks and benefits of the procedure and the sedation options and risks were discussed with the patient. All questions were answered and informed consent was obtained. Patient identification and proposed procedure were verified by the physician in the pre-procedure area. Mental Status Examination: alert and oriented. Airway Examination: normal oropharyngeal airway and neck mobility. Respiratory Examination: clear to auscultation. CV Examination: normal. Prophylactic Antibiotics: The patient does not require prophylactic antibiotics. Prior Anticoagulants: The patient has taken no anticoagulant or antiplatelet agents. ASA Grade Assessment: II - A patient with mild systemic disease. After reviewing the risks and benefits, the patient was deemed in satisfactory condition to undergo the procedure. The anesthesia plan was to use monitored anesthesia care (MAC). Immediately prior to administration of medications, the patient was re-assessed for adequacy to receive sedatives. The heart rate, respiratory rate, oxygen saturations, blood pressure, adequacy of pulmonary ventilation, and response to care were monitored throughout the procedure. The physical status of the patient was re-assessed after the procedure. After obtaining informed consent, the endoscope was passed under direct vision. Throughout the procedure, the patient's blood pressure, pulse, and oxygen saturations were monitored continuously. The was introduced through the mouth, and advanced to the second part of duodenum. The upper GI endoscopy was accomplished without difficulty. The patient tolerated the procedure well. Scope In: 12:25:47 PM Scope Out: 12:35:10 PM Total Procedure Duration Time 0 hours 9 minutes 23 seconds Findings: The examined esophagus was normal. Three 20 mm sessile polyps with no bleeding and no stigmata of recent bleeding were found in the gastric body and in the gastric antrum. The polyp was removed with a hot snare. Resection and retrieval were complete. Verification of patient identification for the specimen was done. Estimated blood loss was minimal. No gross lesions were noted in the first portion of the duodenum. Impression: - Normal esophagus. - Three gastric polyps. Resected and retrieved. - No gross lesions in the first portion of the duodenum. Recommendation: - Discharge patient to home. - Resume previous diet. - Continue present medications. - Await pathology results. Procedure Code(s): --- Professional --- 26174, Esophagogastroduodenoscopy, flexible, transoral; with removal of tumor(s), polyp(s), or other lesion(s) by snare technique CPT copyright 2021 [employer]. All rights reserved. The codes documented in this report are preliminary and upon farm marketer review may be revised to meet current compliance requirements. Santi Woods DO 01/30/2024 12:40:22 PM This report has been signed electronically. Number of Addenda: 0 Note Initiated On: 01/30/2024 12:13 PM
--- NOTE | 2024-01-30 12:41 | OP.CCLET_ITS ---
01/30/2024 Chelsea Awad [address] [place] [address] Re : Upper GI endoscopy procedure for Deb Bartholomew Dear Dr. Awad This procedure was performed on Tuesday, January 30, 2024. My impressions and recommendations are as follows: Impressions : - Normal esophagus. - Three gastric polyps. Resected and retrieved. - No gross lesions in the first portion of the duodenum. Recommendations : - Discharge patient to home. - Resume previous diet. - Continue present medications. - Await pathology results. My findings are described in the full procedure note, which is enclosed. If I can be of further assistance, please feel free to contact me at . Sincerely, Santi Woods, 01/30/2024 12:40:22 PM This report has been signed electronically.
[2024-01-30 12:42] VITALS: BP 142/91; BP 150/82; PULSE 78; RESP 18; TEMP 36.7; O2SAT 99
[2024-01-30 12:45] VITALS: BP 141/91; BP 150/82; PULSE 78; RESP 18; O2SAT 99
[2024-01-30 12:50] VITALS: BP 138/86; BP 150/82; PULSE 77; RESP 18; O2SAT 100
[2024-01-30 12:54] VITALS: BP 134/92; BP 150/82; PULSE 74; RESP 18; TEMP 36.7; O2SAT 99
[2024-01-30 13:15] VITALS: BP 150/82
== END 2024-01-30 13:24 | disposition home or self-care (01) ==
LOC: EN 10:47 → AC 10:48
PROVIDERS: PCP Family Medicine; Referring Provider Family Medicine; Visit Provider Internal Medicine Gastroenterology
PROC: 0DJ08ZZ Inspection of Upper Intestinal Tract, Via Natural or Artificial Opening Endoscopic (ICD-10-PCS; CPT 43235; principal; 2024-01-30 11:55)
DX: C7A.8 Other malignant neuroendocrine tumors (principal); K31.7 Polyp of stomach and duodenum; K52.831 Collagenous colitis; Z79.899 Other long term (current) drug therapy; I10 Essential (primary) hypertension
CPT/HCPCS: 43251; 88305; 88342; J7120; J2405

== ENCOUNTER → 2024-06-18 | Outpatient (CLI) | payer MEDICARE, OTHER, SELFPAY ==
--- NOTE | 2024-06-18 16:00 | RAD_ITS ---
STUDY: X-RAY CHEST REASON FOR EXAM: Female, 88 years old. CHEST AND SHOULDER PAIN TECHNIQUE: 2 PA and lateral views of the chest. COMPARISON: 10/02/2020 FINDINGS: The lungs are clear and expanded. There is no demonstrated pleural abnormality. Normal size heart. Normal mediastinum and brett. Normal visualized pulmonary arteries. There is atherosclerotic calcification of the aortic arch with tortuosity. There are diffuse degenerative changes of the visualized thoracic spine. Normal visualized ribs, clavicles, and shoulders. There is no demonstrated abnormality of the visualized soft tissue structures of the upper abdomen. RAD/Chest PA and Lateral IMPRESSION: No acute pulmonary process Electronically Signed: Sergio Horta MD at 11:23 EDT ,
[2024-06-18 18:16] LABS: D-Dimer Quantitative (DVT/PE) 0.28 FEU/ug/m (0.27-0.49)
--- OUTSIDE RECORDS SUMMARY | 2024-06-18 19:53 | XMS RPT_ITS | CCD ---
Author Organization [facility]ini[facility] Care Team Providers Care Recovery Manager Name Role Phone Jorge MELVIN, Mansour S Unavailable Ritesh VILLANUEVA, Chelsea Primary Care Provider [phone] Mundo GARCIA, Bonnie Unavailable Unavailable Nikhil VILLANUEVA, Jairo K Unavailable Donna Alfonso PA-C Unavailable AYDE JUSTIN Attending Unavailable MIEDEL, CHELSEA Primary Care Unavailable SUKRITHAN, JAIRO K Referring Unavailable ISCKARUS, MANSOUR S Referring Unavailable MIEDEL, CHELSEA Primary Care Unavailable SUKRITHAN, JAIRO K Attending Unavailable SUKRITHAN, JAIRO K Attending Unavailable MIEDEL, CHELSEA Primary Care Unavailable ISCKARUS, MANSOUR S Referring Unavailable MIEDEL, CHELSEA Referring Unavailable SUKRITHAN, JAIRO K Attending Unavailable MIEDEL, CHELSEA Primary Care Unavailable SUKRITHAN, JAIRO K Attending Unavailable SUKRITHAN, JAIRO K Referring Unavailable MIEDEL, CHELSEA Primary Care Unavailable SUKRITHAN, JAIRO K Referring Unavailable SUKRITHAN, JAIRO K Attending Unavailable MIEDEL, CHELSEA Primary Care Unavailable MIEDEL, CHELSEA Referring Unavailable MIEDEL, CHELSEA Primary Care Unavailable SUKRITHAN, JAIRO K Attending Unavailable SIRI HANSEN Attending Unavailable MEED, CHELSEA Primary Care Unavailable FELICIA CORTES Referring Unavailable SIRI HANSEN Attending Unavailable RITESH, CHELSEA Primary Care Unavailable FELICIA CORTES Attending Unavailable [facility], CHELSEA Primary Care Unavailable Allergies Allergy Classification Reported Allergen(s) Allergy Type Date of Onset Reaction(s) Facility (3 sources) Amitriptyline; Translations: [AMITRIPTYLINE] Drug Allergy 0 Drowsy/Sedated [facility] (2 sources) Amoxicillin Drug Allergy 2 Hives [facility] (1 source) meloxicam; Translations: [MELOXICAM] Drug Allergy 6 [facility] (1 source) Penicillins; Translations: [PENICILLINS] Propensity to adverse reactions to drug (disorder) 5 [facility] Repository (1 source) Risedronate; Translations: [RISEDRONATE] Drug Allergy 9 [facility] Medications Current Medications Medication Drug Class(es) Dates Sig (Normalized) Sig (Original) acetaminophen 325 mg oral tablet (2 sources) take 1 tablet by mouth every four hours acetaminophen 325 MG tablet Take 325 mg by mouth every 4 hours. 0 Active budesonide 3 mg delayed release oral capsule (2 sources) Corticosteroid take 2 capsules by mouth once daily in the morning budesonide [address] Particles capsule EC Take 6 mg by mouth daily every morning. 0 Active colestipol hydrochloride 1000 mg oral tablet (1 source) Bile Acid Sequestrant take 2 tablets by mouth twice daily colestipol 1 g tablet Take 2 g by mouth 2 times daily. 0 Active folic acid 1 mg oral tablet (2 sources) take 1 tablet by mouth once daily folic acid 1 MG tablet Take 1 mg by mouth daily. 0 Active lisinopril 5 mg oral tablet (2 sources) Angiotensin Converting Enzyme Inhibitor take 1 tablet by mouth once daily lisinopril 5 MG tablet Take 5 mg by mouth daily. 0 Active loratadine 10 mg oral tablet (2 sources) take 1 tablet by mouth once daily loratadine 10 MG tablet Take 10 mg by mouth daily. 0 Active Multiple Vitamins-Minerals (CENTRUM ADULTS PO) (2 sources) take 1 capsule by mouth once daily Multiple Vitamins-Minerals (CENTRUM ADULTS PO) Take 1 capsule by mouth daily. 0 Active pantoprazole 40 mg delayed release oral tablet (1 source) Proton Pump Inhibitor Start: 12-30-2021 take 1 tablet by mouth once daily pantoprazole [address] tablet DR Take 1 tablet by mouth daily. 60 tablet 3 12/30/2021 Active pseudoephedrine hydrochloride 30 mg oral tablet (2 sources) alpha-Adrenergic Agonist take 1 tablet by mouth every four hours as needed pseudoephedrine 30 MG tablet Take 30 mg by mouth every 4 hours as needed for Congestion. 0 Active Problems Active Problems Problem Classification Problem Date Documented Date Episodic/Chronic Malignant neoplasm without specification of site (1 source) Malignant neuroendocrine tumor; Translations: [Other malignant neuroendocrine tumors] Chronic Other ear and sense organ disorders (2 sources) Sensorineural hearing loss, bilateral; Translations: [Sensorineural hearing loss, bilateral] Onset: 05-21-2024 Chronic Other upper respiratory disease (2 sources) Allergic rhinitis due to pollen; Translations: [Allergic rhinitis due to pollen] Onset: 05-21-2024 Chronic Otitis media and related conditions (2 sources) Unspecified Eustachian tube disorder, bilateral; Translations: [Unspecified eustachian tube disorder, bilateral] Onset: 05-21-2024 Episodic Past or Other Problems Problem Classification Problem Date Documented Da te Episodic/Chronic Mood disorders (2 sources) Mood disorders Onset: 10-30-2021 Resolved: 12-30-2021 10-30-2021 Results Test Name Value Interpretation Reference Range Facility NUC PET NEUROENDOCRINEon NUC PET NEUROENDOCRINE EXAM: NUC PET NEUROENDOCRINE, 01/28/2022 12:30 PM CLINICAL INDICATIONS: NET; , COMPARISON: No prior studies available for comparison. CT DOSE: DLP: 824 mGy x cm kVp: 120 TECHNIQUE: Approximately 68 minutes following the injection of 3.92 mCi of Gallium-68 Dotatate, the patient was positioned on the Siemens Biograph mCT TOF< PET/CT-64, Jose imaging unit. A low resolution non-contrast CT was obtained from the top of the head through the mid-femurs for use in attenuation correction and anatomic correlation. PET emission scans of this anatomic region were acquired shortly thereafter. Axial, sagittal, coronal and maximal intensity projection reconstruction images were presented for interpretation. FINDINGS: Head/Neck: Physiologic activity seen within the pituitary gland, salivary glands, and thyroid. Chest: No definite suspicious tracer avid foci Abdomen/Pelvis: Intense physiologic uptake seen within the spleen and adrenal glands which can obscure potential disease in these structures. Milder physiologic uptake seen within the liver. Musculoskeletal: No definite suspicious tracer avid osseous foci IMPRESSION: No definite evidence of somatostatin receptor avid malignancy. Normal [facility] GLUCAGONon 11-06-2021 Glucagon [Mass/Vol] 26 pg/mL <=80 [facility] Comment on above: ADDITIONAL INFORMATION Proven glucagonomas have analyte concentrations 10 fold or more above the reference range. This test was developed and its performance characteristics determined by [facility] in a manner consistent with CLIA requirements. This test has not been cleared or approved by the U.S. Food and Drug Administration. Test Performed by: [facility] [address] [place] [address] Machine Sign Writer: Johny Jim M.D. Ph.D.; CLIA# [id number] [facility] ANTI PARIETAL ANTIBODYOrdere d By: Juliet Cormier on 11-03-2021 Interpretation and review of laboratory results Normal [facility] Parietal cell Ab IF Ql (S) Negative Negative [facility] CHROMOGRANIN Aon 11-03-2021 Chromogranin A [Mass/Vol] 251 ng/mL High <93 [facility] Comment on above: Impaired renal or he patic function or treatment with proton pump inhibitors may result in artifactual elevations of Chromogranin A. ADDITIONAL INFORMATION This test was developed and its performance characteristics determined by [facility] in a manner consistent with CLIA requirements. This test has not been cleared or approved by the U.S. Food and Drug Administration. In some immunoassays, the presence of unusually high concentrations of analyte may result in a high-dose hook effect. This may result in a lower or even normal measured analyte concentration. If the reported result is inconsistent with the clinical presentation, the laboratory should be alerted for troubleshooting. For diagnostic purposes, these immunoassay results should always be assessed in conjunction with the patients medical history, clinical examination and other findings. The testing method is a homogeneous time-resolved immunofluorescent assay manufactured by [employer] and performed on the [employer] Kryptor Compact Plus. Values obtained with different assay methods or kits may be different and cannot be used interchangeably. Test results cannot be interpreted as absolute evidence for the presence or absence of malignant disease. Test Performed by: [place] [address] Machine Sign Writer: Johny Jim M.D. Ph.D.; CLIA# [id number] Interpretation and review of laboratory results Abnormal [facility] INTRINSIC FACTOR ANTIBODYon 11-03-2021 Annotation comment [Interpretation] Narrative SEE COMMENTS [facility] Comment on above: Intrinsic Factor Blo cking Antibody (IFBA) antibodies are absent in approximately 50% of individuals with pernicious anemia (PA). The absence of elevated IFBA antibodies does not rule out the presence of PA; further studies such as gastrin testing may be indicated. Test Performed by: [place] [address] Machine Sign Writer: Johny Jmi M.D. Ph.D.; CLIA# [id number] Intrinsic factor blocking Ab Ql (S) Negative Negative [facility] GASTRIN - NON-STIMULATEDOrde red By: Korina Samuels on 11-02-2021 Gastrin [Mass/Vol] 3065 pg/mL High <122 [facility] Interpretation and review of laboratory results Abnormal [facility] ANTI PARIETAL ANTIBODYon Parietal Cell Antibody Negative Normal Negative [facility] Comment on above: Performed By: #### P CA #### [facility] (DEFAULT) [address] [address] CBC AND ELECTRONIC DIFFon Basophils (Bld) [#/Vol] 0.04 10*3/uL Normal 0.00-0.15 [facility] Comment on above: Performed By: #### L [id number] #### [facility] (DEFAULT) [address] [address] Basophils/100 WBC (Bld) 0.4 % Normal [facility] Comment on above: Performed By: #### L [id number] #### [facility] (DEFAULT) [address] [place] [address] DIFF STATUS Electronic Differential Normal [facility] Comment on above: Performed By: #### L [id number] #### [facility] (DEFAULT) [address] [place] [address] Eosinophils (Bld) [#/Vol] 10*3/uL Normal 0.00-0.42 [facility] Comment on above: Performed By: #### L [id number] #### [facility] (DEFAULT) [address] [place] [address] Eosinophils/100 WBC (Bld) 0.2 % Normal [facility] Comment on above: Performed By: #### L [id number] #### [facility] (DEFAULT) [address] [place] [address] Hematocrit (Bld) [Volume fraction] 42.4 % Normal 34.9-44.3 [facility] Comment on above: Performed By: #### L [id number] #### [facility] (DEFAULT) [address] [place] [address] Hemoglobin (Bld) [Mass/Vol] 13.6 g/dL Normal 11.4-15.2 [facility] Comment on above: Performed By: #### L [id number] #### [facility] (DEFAULT) [address] [place] [address] Immature Grans % 0.2 % Normal [facility] Comment on above: Performed By: #### L [id number] #### [facility] (DEFAULT) [address] [address] Immature Grans Absolute <0.04 Normal <=0.09 [facility] Comment on above: Performed By: #### L [id number] #### [facility] (DEFAULT) [address] [place] [address] Lymphocytes (Bld) [#/Vol] 1.12 10*3/uL Low 1.16-3.51 [facility] Comment on above: Performed By: #### L [id number] #### [facility] (DEFAULT) [address] [address] Lymphocytes/100 WBC (Bld) 10.6 % Normal [facility] Comment on above: Performed By: #### L AB980 #### [facility] (DEFAULT) [address] [address] MCV (RBC) [Entitic vol] 89.5 fL Normal 79.6-97.7 [facility] Comment on above: Performed By: #### L [id number] #### [facility] (DEFAULT) [address] [address] Mean Cell Hgb 28.7 pg Normal 25.9-33.9 [facility] Comment on above: Performed By: #### L [id number] #### [facility] (DEFAULT) [address] [address] Mean Cell Hgb Conc 32.1 g/dL Normal 31.4-35.9 [facility] Comment on above: Performed By: #### L [id number] #### [facility] (DEFAULT) [address] [address] Monocytes (Bld) [#/Vol] 0.52 10*3/uL Normal 0.22-0.87 [facility] Comment on above: Performed By: #### L [id number] #### [facility] (DEFAULT) [address] [address] Monocytes/100 WBC (Bld) 4.9 % Normal [facility] Comment on above: Performed By: #### L [id number] #### [facility] (DEFAULT) [address] [address] Nucleated RBC 0.0 /100 WBC Normal <=0.2 [facility] Comment on above: Performed By: #### L [id number] #### [facility] (DEFAULT) [address] [address] Platelet mean volume (Bld) [Entitic vol] 11.0 fL Normal 8.5-12.2 [facility] Comment on above: Performed By: #### L [id number] #### [facility] (DEFAULT) [address] [place] [address] Platelets (Bld) [#/Vol] 301 10*3/uL Normal 150-393 [facility] Comment on above: Performed By: #### L [id number] #### [facility] (DEFAULT) [address] [place] [address] RBC (Bld) [#/Vol] 4.74 10*6/uL Normal 3.91-5.04 [facility] Comment on above: Performed By: #### L [id number] #### [facility] (DEFAULT) [address] [place] [address] RBC Distribution 15.3 % High 10.8-14.9 [facility] Comment on above: Performed By: #### L [id number] #### [facility] (DEFAULT) [address] [place] [address] Segs + Bands Auto 83.7 % Normal [facility] Comment on above: Performed By: #### L [id number] #### [facility] (DEFAULT) [address] [place] [address] Segs + Bands,Absolute Auto 8.85 K/uL High 1.64-7.28 [facility] Comment on above: Performed By: #### L [id number] #### [facility] (DEFAULT) [address] [place] [address] WBC (Bld) [#/Vol] 10.57 10*3/uL Normal 3.99-11.19 [facility] Comment on above: Performed By: #### L [id number] #### [facility] (DEFAULT) [address] [address] CHROMOGRANIN Aon 10-30-2021 CHROMOGRANIN A 251 ng/mL High <93 [facility] Comment on above: Result Comment: Impa ired renal or hepatic function or treatment with proton pump inhibitors may result in artifactual elevations of Chromogranin A. ADDITIONAL INFORMATION This test was developed and its performance characteristics determined by [facility] in a manner consistent with CLIA requirements. This test has not been cleared or approved by the U.S. Food and Drug Administration. In some immunoassays, the presence of unusually high concentrations of analyte may result in a high-dose hook effect. This may result in a lower or even normal measured analyte concentration. If the reported result is inconsistent with the clinical presentation, the laboratory should be alerted for troubleshooting. For diagnostic purposes, these immunoassay results should always be assessed in conjunction with the patients medical history, clinical examination and other findings. The testing method is a homogeneous time-resolved immunofluorescent assay manufactured by [employer] and performed on the [employer] Kryptor Compact Plus. Values obtained with different assay methods or kits may be different and cannot be used interchangeably. Test results cannot be interpreted as absolute evidence for the presence or absence of malignant disease. Test Performed by: [address] [place] [address] Machine Sign Writer: Johny Jim M.D. Ph.D.; CLIA# [id number] Performed By: #### Y CHGRA #### [facility] (DEFAULT) [address] [address] COMPREHENSIVE METABOLIC PANE Jaya 10-30-2021 Albumin [Mass/Vol] 4.7 g/dL Normal 3.5-5.0 [facility] Comment on above: Performed By: #### C RAHEEL PIZARRO #### [facility] (DEFAULT) [address] [address] ALP [Catalytic activity/Vol] 67 U/L Normal 32-126 [facility] Comment on above: Performed By: #### C MPNTHAOO #### [facility] (DEFAULT) [address] [address] ALT [Catalytic activity/Vol] 14 U/L Normal 9-48 [facility] Comment on above: Performed By: #### C MPN, LDO #### [facility] (DEFAULT) [address] [place] [address] Anion gap [Moles/Vol] 14 mmol/L Normal 7-17 [facility] Comment on above: Performed By: #### C MPN, LDO #### [facility] (DEFAULT) [address] [place] [address] AST [Catalytic activity/Vol] 15 U/L Normal 10-39 [facility] Comment on above: Performed By: #### C MPN, LDO #### [facility] (DEFAULT) [address] [place] [address] Bilirubin [Mass/Vol] 0.5 mg/dL Normal <1.5 [facility] Comment on above: Performed By: #### C MPN, LDO #### [facility] (DEFAULT) [address] [place] [address] Calcium [Mass/Vol] 9.7 mg/dL Normal 8.6-10.5 [facility] Comment on above: Performed By: #### C MPN, LDO #### [facility] (DEFAULT) [address] [place] [address] Chloride [Moles/Vol] 107 mmol/L Normal 98-108 [facility] Comment on above: Performed By: #### C MPN, LDO #### [facility] (DEFAULT) [address] [place] [address] CO2 [Moles/Vol] 24 mmol/L Normal 21-31 [facility] Comment on above: Performed By: #### C MPN, LDO #### [facility] (DEFAULT) [address] [place] [address] Creatinine [Mass/Vol] 0.91 mg/dL Normal 0.50-1.20 [facility] Comment on above: Performed By: #### C MPN, LDO #### [facility] (DEFAULT) [address] [place] [address] GFR/1.73 sq M.predicted among non-blacks MDRD (S/P/Bld) [Vol rate/Area] 62 mL/min/{1.73_m2} Normal >=60 [facility] Comment on above: Result Comment: Repo rted eGFR is based on the CKD-EPI 2020 equation using creatinine, age, and sex. Performed By: #### C MPN, LDO #### [facility] (DEFAULT) [address] [place] [address] Glucose [Mass/Vol] 137 mg/dL High 70-99 [facility] Comment on above: Performed By: #### C MPN, LDO #### [facility] (DEFAULT) [address] [place] [address] Osmolality [Osmolality] 296 mosm/kg Normal 278-305 [facility] Comment on above: Performed By: #### C MPN, LDO #### [facility] (DEFAULT) [address] [place] [address] Potassium [Moles/Vol] 3.5 mmol/L Normal 3.5-5.0 [facility] Comment on above: Performed By: #### C MPN, LDO #### [facility] (DEFAULT) [address] [place] [address] Protein [Mass/Vol] 7.4 g/dL Normal 6.4-8.3 [facility] Comment on above: Performed By: #### C MPN, LDO #### [facility] (DEFAULT) [address] [place] [address] Sodium [Moles/Vol] 141 mmol/L Normal 135-145 [facility] Comment on above: Performed By: #### C MPN, LDO #### [facility] (DEFAULT) [address] [place] [address] Urea nitrogen [Mass/Vol] 12 mg/dL Normal 7-25 [facility] Comment on above: Performed By: #### C MPN, LDO #### [facility] (DEFAULT) [address] [place] [address] Urea nitrogen/Creatinine [Mass ratio] 13 mg/mg Normal [facility] Comment on above: Performed By: #### C MPN, LDO #### [facility] (DEFAULT) [address] [place] [address] Albumin [Mass/Vol] 4.7 g/dL 3.5 - 5.0 g/dL [facility] ALP [Catalytic activity/Vol] 67 U/L 32 - 126 U/L [facility] ALT [Catalytic activity/Vol] 14 U/L 9 - 48 U/L [facility] Anion gap [Moles/Vol] 14 mmol/L 7 - 17 mmol/L [facility] AST [Catalytic activity/Vol] 15 U/L 10 - 39 U/L [facility] Bilirubin [Mass/Vol] 0.5 mg/dL <1.5 [facility] Calcium [Mass/Vol] 9.7 mg/dL 8.6 - 10. 5 mg/dL [facility] Chloride [Moles/Vol] 107 mmol/L 98 - 10 8 mmol/L [facility] CO2 [Moles/Vol] 24 mmol/L 21 - 31 mmol/L [facility] Creatinine [Mass/Vol] 0.91 mg/dL 0.50 - 1.20 mg/dL [facility] GFR/1.73 sq M.predicted CKD-EPI (S/P/Bld) [Vol rate/Area] 62 >=60 mL/min/1.73m2 [facility] Comment on above: Reported eGFR is bas ed on the CKD-EPI 2020 equation using creatinine, age, and sex. Glucose [Mass/Vol] 137 mg/dL High 70 - 99 mg/dL [facility] Interpretation and review of laboratory results Abnormal [facility] Osmolality Calc [Osmolality] 296 [facility] Potassium [Moles/Vol] 3.5 mmol/L 3.5 - 5.0 mmol/L [facility] Protein [Mass/Vol] 7.4 g/dL 6.4 - 8.3 g/dL [facility] Sodium [Moles/Vol] 141 mmol/L 135 - 145 mmol/L [facility] Urea nitrogen [Mass/Vol] 12 mg/dL 7 - 25 mg/dL [facility] Urea nitrogen/Creatinine [Mass ratio] 13 mg/mg [facility] GASTRIN - NON-STIMULATEDon 0 10-30-2021 Gastrin, Non-Stimulated 3065 pg/mL High <122 [facility] Comment on above: Performed By: #### G STR #### [facility] (DEFAULT) [address] [place], [place] [address] GLUCAGONon 10-30-2021 GLUCAGON 26 pg/mL Normal <=80 [facility] Comment on above: Result Comment: ADDITIONAL INFORMATION Proven glucagonomas have analyte concentrations 10 fold or more above the reference range. This test was developed and its performance characteristics determined by [facility] in a manner consistent with CLIA requirements. This test has not been cleared or approved by the U.S. Food and Drug Administration. Test Performed by: [place] [address] Machine Sign Writer: Johny Jim M.D. Ph.D.; CLIA# [id number] Performed By: #### Y GLP #### [facility] (DEFAULT) [address] [place] [address] INTRINSIC FACTOR ANTIBODYon 10-30-2021 INTRINSIC FACTOR BLOCK AB COMMNT SEE COMMENTS Normal [facility] Comment on above: Result Comment: Intr insic Factor Blocking Antibody (IFBA) antibodies are absent in approximately 50% of individuals with pernicious anemia (PA). The absence of elevated IFBA antibodies does not rule out the presence of PA; further studies such as gastrin testing may be indicated. Test Performed by: [facility] [place] [address] Machine Sign Writer: Johny Jim M.D. Ph.D.; CLIA# [id number] Performed By: #### Y INTR #### [facility] (DEFAULT) [address] [address] INTRINSIC FACTOR BLOCKING AB Negative Normal Negative [facility] Comment on above: Performed By: #### Y INTR #### [facility] (DEFAULT) [address] [address] LACTATE DEHYDROGENASEon 10-20 LD Total 150 U/L Normal 100-190 [facility] Comment on above: Performed By: #### C MPN, LDO #### [facility] (DEFAULT) [address] [address] Interpretation and review of laboratory results Normal [facility] LDH Lactate to pyruvate reaction [Catalytic activity/Vol] 150 U/L 100 - 190 U/L [facility] No Panel Informationon 10-30 [facility] PANCREATIC POLYPEPTIDEon Pancreatic Polypeptide 391 pg/mL Normal [facility] Comment on above: Result Comment: REFERENCE VALUE Reference values have not been established for patients who are greater than 80 years of age. ADDITIONAL INFORMATION This test was developed and its performance characteristics determined by [facility] in a manner consistent with CLIA requirements. This test has not been cleared or approved by the U.S. Food and Drug Administration. Test Performed by: [facility] [address] [place] [address] Machine Sign Writer: Johny Jim M.D. Ph.D.; CLIA# [id number] Performed By: #### G STR #### [facility] (DEFAULT) [address] [address] VITAMIN B12on 10-30-2021 Cobalamin (Vitamin B12) [Mass/Vol] 764 pg/mL 211 - 911 pg/mL [facility] Interpretation and review of laboratory results Normal [facility] Cobalamin (Vitamin B12) [Mass/Vol] 764 pg/mL Normal 211-911 [facility] Comment on above: Performed By: #### B 12B #### [facility] (DEFAULT) [address] [place] [address] Vital Signs Date Time Vital Sign Value Performing Clinician Faci lity 10-30-2021 12:38-0500 Body height 157.5 cm Jairo Tejeda MD Work Phone: [facility] 10-30-2021 12:38-0500 Body mass index (BMI) [Ratio] 28.19 kg/m2 Jairo Tejeda MD Work Phone: [facility] 10-30-2021 12:38-0500 Body temperature 98.4 [degF] Jairo Tejeda MD Work Phone: [facility] 10-30-2021 12:38-0500 Body weight 69.9 kg Jairo Tejeda MD Work Phone: [facility] 10-30-2021 12:38-0500 Diastolic blood pressure 88 mm[Hg] Jairo Tejeda MD Work Phone: [facility] 10-30-2021 12:38-0500 Heart rate 113 /min Jairo Tejeda MD Work Phone: [facility] 10-30-2021 12:38-0500 Respiratory rate 22 /min Jairo Tejeda MD Work Phone: [facility] 10-30-2021 12:38-0500 SaO2% (BldA) [Mass fraction] 96 % Jairo Tejeda MD Work Phone: [facility] 10-30-2021 12:38-0500 Systolic blood pressure 168 mm[Hg] Jairo Tejeda MD Work Phone: [facility] Encounters Encounter Date Encounter Type Care Provider Facility Start: 05-29-2024 End: 05-29-2024 ambulatory SIRI HANSEN [facility] Start: 05-21-2024 End: 05-25-2024 ambulatory FELICIA CORTES [facility] Start: 04-27-2022 ambulatory AYDE JUSTIN Facility :[facility] Start: 02-17-2022 ambulatory CHESLEA AWAD Facility: [facility] Start: 01-28-2022 ambulatory JAIRO MONTOYAKRITHAN Fac ility:[facility] Start: 01-19-2022 End: 01-19-2022 Subsequent hospital visit by physician Jairo Tejeda MD Work Phone: [facility] Comment on above: Canceled (Provider/R esource Unavailable (Bump)) Start: 01-19-2022 ambulatory JAIRO K SUKRITHAN Fac ility:[facility] Start: 12-30-2021 ambulatory CHELSEA STOKESROMAN Facility: [facility] Start: 10-30-2021 ambulatory JAIRO Drew SUKRITHAN Fac ility:[facility] Start: 10-30-2021 ambulatory MANSHIRAL S ISCKARUS Faci lity:[facility] Start: 10-30-2021 End: 10-30-2021 Office consultation new/estab patient 80 min Jairo Tejeda MD Work Phone: Division of Medical Oncology Comment on above: Neuroendocrine cance r (Primary Dx) Plan of Treatment Date Care Activity Detail Author Start: 04-27-2022 End: 04-27-2022 ambulatory 04/27/2022 Telemed Clin Support Genetics Ayde Justin, [facility] [address] [place] [address] Division of Human Genetics Start: 04-22-2022 Influenza vaccination INFLUENZ A VACCINE (Season Ended) [facility] Start: 02-17-2022 End: 02-17-2022 Telemedicine consultation with patient 02/17/2022 Telemedicine Oncology Jairo Tejeda MD [address] [phone] Division of Medical Oncology Start: 01-28-2022 End: 01-28-2022 Patient encounter procedure 01/28/2022 Appointment Nuclear Medicine Jairo Tejeda MD [address] [place] [phone] [facility] Start: 12-30-2021 End: 12-30-2021 Telemedicine consultation with patient 12/30/2021 Telemedicine Oncology Jairo Tejeda MD [address] [address] Division of Medical Oncology Start: 10-30-2021 End: 10-30-2022 CT Abdomen and Pelvis WO and W contrast IV CT ABDOMEN/PELVIS WITH AND WITHOUT CONTRAST Imaging Routine Neuroendocrine cancer Expected: 10/30/2021, Expires: 10/30/2022 [facility] Comment on above: Expected: 10/30/2021 , Expires: 10/30/2022 Start: 10-30-2021 End: 10-30-2022 PANCREATIC POLYPEPTIDE [facility] Comment on above: Expected: 10/30/2021 , Expires: 10/30/2022 Start: 04-22-2021 Influenza vaccination INFLUENZA VACC INE (#1) [facility] Start: 2002 Pneumococcal vaccination [facility] Start: 1987 Zoster vaccine hzv l fredrick for subcutaneous use ZOSTER (SHINGLES) VACCINE (1 of 2) [facility] Start: 1982 Colonoscopy COLORECTAL CAN CER SCREENING DISCUSSION [facility] Start: 1977 Screening mammography MAMMOGRA M SCREENING DISCUSSION [facility] Start: 1958 Screening for malign ant neoplasm of cervix CERVICAL CANCER SCREENING DISCUSSION [facility] Start: 1956 Third diphtheria, tetanus and acellular pertussis (DTaP) vaccination TDAP (ADULT) [facility] Start: 1955 Tetanus vaccination TETANUS [facility] Start: 1942 COVID-19 VACCINE (#1) COVID-19 VACCI NE (#1) [facility] Start: 1942 COVID-19 VACCINE (1) COVID-19 VACCIN E (1) [facility] Start: 1937 Screening for osteoporosis DEXA SCAN DISCUSSION [facility] Immunizations Immunization Date Immunization Notes Care Provider Mindi arellano 06-06-2019 influenza virus vaccine, unspecified formulation Jairo Tejeda MD Work Phone: [facility] Payers Date Payer Category Payer Private Health Insurance [id number] 2021 Unknown [id number] 2021 Medicare MEDICARE MEDICAR E A AND B [id number] 2021-Present [address] [place] [address] [id number] 2002 Medicare [id number] 1937 Unknown [id number] 1937 Unknown [id number] 1937 Unknown [id number] 1937 Unknown [id number] 1937 Unknown [id number] 1937 Unknown [id number] 1937 Unknown [id number] 1937 Unknown [id number] 1937 Unknown [id number] 1937 Unknown [id number] Social History Date Type Detail Facility Start: 10-30-2021 Tobacco smoking stat [facility] Never smoked tobacco [facility] History of tobacco use Cigarette Smoker [facility] Start: 10-30-2021 Tobacco use and exposure Smokeless tobacco non-user [facility] Start: 10-30-2021 End: 12-30-2021 Alcohol intake Ex-drinker (finding) [facility] Start: 1935 Sex Assigned At Not on file [facility] Start: 10-20-2021 End: 10-30-2021 Exposure to SARS-CoV-2 (event) Not sure [facility] Progress note 05-21-2024 Note Date & Type Note Facility 05-21-2024 Note [facility] [address] [facility] [address] [facility] [address] Dept: [phone] MD Deb Tyler 88 y.o. female Patient presents with a chief complaint of possible allergies, Ear Cleaning, popping sound in ear Ht 5' 2 Wt 64.1 kg (141 lb 4.8 oz) BMI 25.84 kg/m History of Presenting Illness: The patient/caregiver reports a history of complaint with the following features: She presents with progression of her hearing loss. Prior testing had shown some borderline hearing loss. She is noticing more difficulties understanding speech in social settings. This is limiting her social interactions. She also has been having more allergy symptoms this fall with nasal congestion, discharge, and eye watering. She takes intermittent loratadine for this. She had some ear wax that was treated with irrigations and Debrox, but she still feels there is something in the ear canals. Review of systems covering 10 systems is reviewed and pertinent positives and negatives are noted as above. History reviewed. No pertinent past medical history. Current Outpatient Medications: acetaminophen (TYLENOL) 325 MG tablet, Take 1 (one) tablet (325 mg total) by mouth every 4 (four) hours ., Disp: , Rfl: folic acid (FOLVITE) 1 MG tablet, Take 1 (one) tablet (1,000 mcg total) by mouth daily ., Disp: , Rfl: lisinopriL (PRINIVIL,ZESTRIL) 5 MG tablet, Take 1 (one) tablet (5 mg total) by mouth daily ., Disp: , Rfl: loratadine (CLARITIN) 10 mg tablet, Take 1 (one) tablet (10 mg total) by mouth as needed ., Disp: , Rfl: lvfmozol-sxr-CP-lycopen-lutein 0.4 mg-300 mcg- 250 mcg Tab, Take by mouth ., Disp: , Rfl: pseudoePHEDrine (SUDAFED) 30 MG tablet, Take 1 (one) tablet (30 mg total) by mouth every 4 (four) hours as needed ., Disp: , Rfl: Allergies Allergen Reactions Amitriptyline Other (See Comments) and GI Intolerance sleepy Meloxicam GI Intolerance dyspepsia Penicillins Hives Risedronate Other (See Comments) Esophageal irritation. Past Surgical History: Procedure Laterality Date ADENOIDECTOMY OVARIAN CYST REMOVAL Right TONSILLECTOMY TUBAL LIGATION Social History Socioeconomic History Marital status: Tobacco Use Smoking status: Never Smokeless tobacco: Never Substance and Sexual Activity Alcohol use: Never Drug use: Never History reviewed. No pertinent family history. PHYSICAL EXAM: The patient was examined today 05/21/2024 with findings as follows: CONSTITUTIONAL: General Appearance: well-appearing, nontoxic, alert, no acute distress Communication: normal voicing, hearing intact to spoken voice HEAD/FACE: Head: atraumatic, normocephalic, no lesions Facial Inspection: no lesions, healthy skin Facial Strength: motor strength normal, symmetric strength, symmetric movement EYES: Pupils: PERRLA, extra-ocular movements intact, no nystagmus, sclera white, no redness of eyes, no watering of eyes EARS: Bilateral External Ears: no pits, no tags Right External Ear: normally formed, no lesions, no mastoid tenderness Left External Ear: normally formed, no lesions, no mastoid tenderness Right External Auditory Canal: normal, healthy skin, obstructing cerumen removed, no discharge Left External Auditory Canal: normal, healthy skin, no obstructing cerumen, no discharge Right Tympanic Membrane: normal landmarks, translucent Left Tympanic Membrane: normal landmarks, translucent Hearing: intact to spoken voice NOSE: Nasal Skin: no lesions, no lacerations, no scars Nasal Dorsum: symmetric with no visible or palpable deformities Nasal Tip: normal symmetric nasal tip, normal nasal valves Nasal Mucosa: boggy Septum: not markedly deformed, midline, no exposed vessels, no bleeding, no septal granuloma Turbinates: normal size and conformation Nasopharynx: normal NECK: Neck: no masses, trachea midline, normal range of motion, no cysts or pits, no tenderness to palpation LYMPH NODES: Cervical: no palpable lymph node enlargement SKIN: General Appearance: no lesions, warm and dry, normal turgor, no bruising PSYCHIATRIC: Mood and affect: normal mood, normal affect Assessment and Plan: She has some debris in there right ear canal. No middle ear disease is noted. Audiometric testing is performed today and independently reviewed and interpreted. This shows a moderate sloping loss bilaterally with good speech discrimination. Tympanometry shows normal compliance consistent with normally ventilated middle ear spaces. She would likely benefit from hearing aids and she is medically cleared at this time. The causes of hearing loss are discussed in the context of the patient's history and exam findings. We have discussed that exposure to excess environmental noise can result in worsened symptoms and that hearing protection in high noise environments is recommended. We have discussed that hearing aids can be helpful (more content not included)... [facility] Ambulatory History of Present illness Narrative 10-30-2021 Donna Alfonso PA-C - 10/30/2021 12:30 PM Magalis Tejeda MD - 10/30/2021 12:30 PM EST Note Date & Type Note Facility 10-30-2021 History of Present illness Narrative Images from the original note were not included. REFERRING MD: Received referral from: Dr. Trina Patel Neuroendocrine cancer, gastro Antral polyp, biopsy: Well differentiated neuroendocrine tumor (carcinoid Tumor). HISTORY OF PRESENT ILLNESS: Deb Kay is a 86 y.o. female who is diagnosed with well differentiated neuroendocrine tumor . She comes here today for evaluation regarding diagnosis. She was in usual state of health until: Patient was having several months of abdominal cramping and diarrhea. 05/2021: CT A/P with contrast. Indication: Bloating 07/14/2021: EGD/Colonoscopy. Indication: Diarrhea/abdominal pain: 07/2021: FDG PET: Chief Complaint Patient presents with New Patient GI work up 05/12 for diarrhea and digestive issues, CT and upper and lower scopes completed. 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 Sent here for eval No blood in stool No diarrhea Diarrhea for about 1.5 years. It would come and go. She could not find a pattern. Now BM twice a day At worst it was 3 times a day No flushing. No red face. ECOG PS: 0 REVIEW OF SYSTEMS: ONC AMB Nursing Assessment 10/30/2021 Performance Status Grade 0 Fatigue Grade 0 Nausea Grade 0 Vomiting Grade 0 Anorexia Grade 0 Constipation Grade 0 Peripheral Motor Neuropathy Grade 1 Depression Grade 0 Mucositis (oral, pharyngeal) Grade 0 Dyspnea Grade 0 Pain Grade 0 Fever Grade 0 Localized Edema Grade 0 Rash Maculo-Papular Grade 0 All other systems are negative. Allergies Allergen Reactions Amitriptyline Drowsy/Sedated Amoxicillin Hives Current Outpatient Medications Medication Sig Dispense Refill acetaminophen 325 MG tablet Take 325 mg by mouth every 4 hours. budesonide [address] Particles capsule EC Take 6 mg by mouth daily every morning. folic acid 1 MG tablet Take 1 mg by mouth daily. lisinopril 5 MG tablet Take 5 mg by mouth daily. loratadine 10 MG tablet Take 10 mg by mouth daily. Multiple Vitamins-Minerals (CENTRUM ADULTS PO) Take 1 capsule by mouth daily. pseudoephedrine 30 MG tablet Take 30 mg by mouth every 4 hours as needed for Congestion. No current facility-administered medications for this visit. Past Medical History: Diagnosis Date Aneurysm 1974 Essential hypertension, benign History of cancer Past Surgical History: Procedure Laterality Date REMOVAL CATARACT (PEM) 2008 TUBAL LIGATION 1972 OVARIAN CYST REMOVAL 1970 ADENOIDECTOMY 1943 Social History Tobacco Use Smoking status: Never Smoker Smokeless tobacco: Never Used Substance Use Topics Alcohol use: Not Currently Drug use: Never Family History Problem Relation Age of Onset Other - Specify Mother colon surgery, no cancer Other - Specify Father AAA Other - Specify Maternal Grandmother TB Cancer- Other Paternal Grandfather Family Hx: PGF with Leukemia. 1 biological child: No cancer history, RA Social Hx: She grew up in [place]; Then lived in [place]; Now lives in [place], [place] PHYSICAL EXAMINATION: Patient is in no acute distress. Patient is alert, oriented to person, place and time. Blood pressure 168/88, pulse 113, temperature 98.4 F (36.9 C), temperature source Oral, resp. rate 22, height 1.575 m (5' 2 ), weight 69.9 kg (154 lb 1.6 oz), SpO2 96 %. HEENT: Head atraumatic, normocephalic. Gross vision intact. Eyes are nonicteric. Oral cavity with moist mucous membranes, no lesions or exudates. Neck: supple, symmetrical, no adenopathy, no tenderness/mass/nodules. Lungs: Clear to auscultation bilaterally. No rales or wheezing. Heart: S1/S2 normal, no murmurs, gallops or rub. Regular heart rate and rhythm. Abdomen: Soft, nontender, non distended, without palpable masses. Normoactive bowel sounds present. No liver or mass are palpable. Extremities : Warm, well perfused. No cyanosis, clubbing, or edema. Positive distal pulses. Skin: Warm and dry with good skin turgor. No rash. Lymph nodes: No lymphadenopathy. Neurologic: No focal deficits, grossly intact. IMAGING STUDIES: See HPI Imaging results have been reviewed and discussed with the patient. LABS: Lab results have been reviewed and discussed with the patient. IMPRESSION & PLAN: 60 mins was spent reviewing outside records in preparation for new patient visit. JORI Fallon PA-C Physician Batch Roller Operator Neuroendocrine Tumor Program [facility] Images from the original note were not included. Addendum by Dr. Tejeda: I have seen and examined the patient with Donna Alfonso PA-C and agree with the findings in her note. Donna Alfonso's note is edited by me. I have reviewed and discussed lab/imaging results with the patient. The plan was made and discussed by me with the patient and team as outlined in Donna Alfonso's note. Counselling: Patient was explained about the spectrum of neuroendocrine cancer ranging from well- to poorly-differentiated based on the grade of differentiation of neuroendocrine carcinoma. Well differentiated neuroendocrine carcinoma (Carcinoid tumor) tends to be generally slow growing in nature and that it may take years to grow rather than days/weeks/months. We discussed that carcinoid tumor can start anywhere in the body including stomach. When it starts in the stomach, it can occur under 3 different settings: 1) chronic atrophic gastritis (CAG) with hypergastrinemia 2) gabrielle oneill syndrome 3)sporadic. Pt was explained at length about natural hx and monitoring/treatment options for each of this categories. 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 Indication: Bloating 07/14/2021: EGD/Colonoscopy. Indication: Diarrhea/abdominal pain: 07/2021: FDG PET: Assessment Tumor burden: Antral polyp s/p biopsy Symptom [place]: Diarrhea (2-3x) on budesonide Plan -Check Vit B12, anti-IF, anti-parietal ab -[facility] read of outside pathology: requested -Labs today including Tumor Markers -Triple phase A/P -Recommend pt have a follow-up EGD for complete resection which pt will chedule RTC December 2021 Jairo Tejeda M.D. Neuroendocrine/Thyroid Tumor Program [facility] [place] documented in this encounter [facility] Instructions 10-30-2021 Patient Instructions Note Date & Type Note Facility 10-30-2021 Instructions Sara Hillman RN - 10/30/2021 7:49 AM EST Return to clinic : RTC December 2021 as video With provider: Nikhil Labs: --Labs today including Tumor Markers, Vit B12, anti-IF, anti-parietal ab Scans: -Triple phase CT A/P 2 weeks prior to RTC in December- locally in [place] Nursing F/up: -[facility] read of outside pathology: requested -Deb, please contact you GI physician and inform him that Dr. Tejeda has Recommended that you receive and complete a follow up EGD documented in this encounter [facility] Evaluation note Note Date & Type Note Facility Evaluation note Diagnosis Neuroendocrine cancer- Primary Other malignant neoplasm without specification of site documented in this encounter [facility] Reason for Referral Specialty Diagnoses / Procedures Referred By Elisabet perry Referred To Contact Diagnoses Neuroendocrine cancer Procedures CT ABDOMEN/PELVIS WITH AND WITHOUT CONTRAST CHG CT SCAN,ABDOMENT AND PELVIS,Donna Rubio PA-C [address] [place] [address] Referral ID Status Reason Start Date Expiration Date V isits Requested Visits Authorized [id number] New Request 10/30/2021 11/24/2022 1 1 Summary Purpose Family History No Family History Records FoundNo Family History Records Found Advance Directives No Advanced Directives Records FoundNo Advanced Directives Records Found Additional Source Comments Reason for Visit (unrecogniz ed section and content) Reason Comments New Patient GI work up 05/12 for diarrhea and digestive issues, CT and upper and lower scopes completed. 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 Sent here for eval Specialty Diagnoses / Procedures Referred By Elisabet perry Referred To Contact Medical Oncology / Oncology Procedures NEW ENDOCRINE CANCER Redd Patel, [facility] [address] [place] [address] Jairo Tejeda MD [address] [address] Referral ID Status Reason Start Date Expiration Date V isits Requested Visits Authorized [id number] New Request 09/11/2021 10/06/2022 1 1 Specialty Diagnoses / Procedures Referred By Contac t Referred To Contact Diagnoses Neuroendocrine tumor Malignant neuroendocrine neoplasm Procedures NUC PET NEUROENDOCRINE CHG NUC THERAPY HYPERTHYROID SUBSEQUENT Jairo Tejeda MD [address] [address] Referral ID Status Reason Start Date Expiration Date V isits Requested Visits Authorized [id number] New Request 12/30/2021 01/24/2023 1 1 Care Teams (unrecognized sec tion and content) Recovery Manager Relationship Specialty Start Date End Date Chelsea Awad MD [address] [place] [phone] PCP - General Family Medicine 10/30/21 Redd Patel [facility] [address] [facility] [address] [place], [place] [phone] Hematology 08/06/21 Recovery Manager Relationship Specialty Start Date End Date Chelsea Awad MD [address] [place] [phone] PCP - General Family Medicine 10/30/21 Redd Patel [facility] [address] [place], [place] [phone] Hematology 08/06/21 Bonnie Flowre, light rail train operator 11/02/21 Jairo Tejeda MD [address] [phone] Oncologist Medical Oncology 11/11/21 Donna Alfonso PA-C [address] [place] [address] Physician Batch Roller Operator 11/11/21 INFORMATION SOURCE (unrecogn ized section and content) DATE CREATED AUTHOR 04/27/2022 [facility] DATE CREATED AUTHOR AUTHOR'S ROSELYN ATSIMONE 05/31/2024 [facility] FOR RECORDS PERTAINING TO PATIENTS WHO ARE OR HAVE BEEN ENROLLED IN A CHEMICAL DEPENDENCY/SUBSTANCEABUSE PROGRAM, SOME INFORMATION MAY BE OMITTED. This clinical summary was aggregated from multiple sources. Caution should be exercised in using it in the provision of clinical care. This summary normalizes information from multiple sources, and as a consequence, information in this document may materially change the coding, format and clinical context of patient data. In addition, data may be omitted in some cases. CLINICAL DECISIONS SHOULD BE BASED ON THE PRIMARY CLINICAL RECORDS. [facility] [employer] [facility]. provides no warranty or guarantee of the accuracy or completeness of information in this document.
== END | disposition home or self-care (01) ==
LOC: MTLAB 15:54
PROVIDERS: PCP Family Medicine; Referring Provider Family Medicine; Visit Provider Family Medicine
DX: R07.9 Chest pain, unspecified (principal); M25.512 Pain in left shoulder
CPT/HCPCS: 36415; 71046; 85379

== ENCOUNTER → 2024-07-12 | Outpatient (CLI) | payer MEDICARE, OTHER, SELFPAY | END | disposition home or self-care (01) | PROVIDERS: PCP Family Medicine; Referring Provider Ophthalmology; Visit Provider Ophthalmology | DX: H50.05 Alternating esotropia (principal); H50.21 Vertical strabismus, right eye | CPT/HCPCS: 36415 ==

== ENCOUNTER → 2024-08-02 | Outpatient (CLI) | payer MEDICARE, OTHER, SELFPAY ==
--- NOTE | 2024-08-02 16:01 | CT_ITS ---
EXAM: CT ORBITS WITH INTRAVENOUS CONTRAST CLINICAL INDICATION: R/O MASS/GRAVES TECHNIQUE: Helically acquired images were obtained of the orbits. Multiplanar reformations were reviewed. Study was performed with intravenous contrast. This CT exam was performed using one or more of the following dose reduction techniques: automated exposure control, adjustment of the mA and/or kV according to patient size, and/or use of iterative reconstruction technique. CONTRAST: IV 100mL [id number] COMPARISON: No relevant prior studies available. FINDINGS: ORBITS: Status post bilateral ocular lens extraction presumptively for the treatment of cataracts. Ocular globes appear otherwise normal and symmetric. Tortuosity of the optic nerve sheaths is present. Normal symmetric appearance of the extraocular muscles. No extraocular muscle enlargement. No evidence of orbital mass or inflammatory change. SINUSES: No significant findings. BONES/JOINTS: No acute maxillofacial fracture. Bony orbits appear intact. Bilateral TMJ arthrosis. Degenerative changes of the craniocervical junction and upper cervical spine. SOFT TISSUES: No acute pathology in the facial soft tissues. VASCULATURE: Arteriosclerosis. CT/Orb Sella Post Fossa Ear W/CON IMPRESSION: 1. No evidence of orbital mass or inflammatory change. 2. Tortuosity of the optic nerve sheaths is present. This may be an artifact of ocular motion during imaging or possibly an indicator of elevated intracranial pressure although no additional signs of elevated intracranial pressure are present. Electronically Signed: Michael Higuera DO at 11:44 EST ,
[2024-08-02 16:21] LABS: CREATININE FINGERSTICK < 1.0 mg/dL (0.55-1.02); EGFR FINGERSTICK > 60.0000 mL/min (>60)
== END | disposition home or self-care (01) ==
LOC: CT 15:51
PROVIDERS: PCP Family Medicine; Referring Provider Ophthalmology; Visit Provider Ophthalmology
DX: H50.05 Alternating esotropia (principal); H50.21 Vertical strabismus, right eye
CPT/HCPCS: 70481; Q9967

== ENCOUNTER → 2025-01-11 | Outpatient (CLI) | payer MEDICARE, OTHER, SELFPAY ==
[2025-01-11 10:42] LABS: Absolute Lymphocyte Count 1.24 X10^3/uL (0.83-4.51); Absolute Neutrophil Count 3.5 X10^3/uL (2.0-7.7); Basophil# 0.03 X10^3/uL; Basophil% 0.6 % (0-1); Eosinophil# 0.19 X10^3/uL; Eosinophils% 3.5 % (0-5); Hematocrit 44.6 % (37-47); Hemoglobin 14.6 g/dL (12.0-15.0); Lymphocyte # 1.24 X10^3/ul (0.83-4.51); Lymphocyte % 23.1 % (19-41); Mean Corp Hgb Conc 32.7 g/dL (32-36); Mean Corpuscular Hgb 31.9 pg (27.0-32.0); Mean Corpuscular Volume 97.6 fL (81-99); Mean Platelet Vol. 10.9 fl (6.2-12.0); Monocyte# 0.37 X10^3/uL; Monocyte% 6.9 % (0-10); NRBC Flagged by Analyzer 0 % (0-5); Neutrophil # 3.52 X10^3/uL (2.7-7.7); Neutrophil % 65.7 % (47-70); Platelet Count 211 K/mm3 (150-450); RBC Distribution Width CV 12.7 % (11.6-14.6); RBC Distribution Width SD 45.6 fl (35.1-43.9); Red Blood Count 4.57 M/mm3 (4.2-5.4); White Blood Count 5.4 K/mm3 (4.4-11.0)
[2025-01-11 11:12] LABS: ALB/GLOB Ratio 1.4 RATIO (0.9-2.4); AST(SGOT) 21 U/L (<=31); Alanine Aminotransfer ALT/SGPT 13 U/L (<=34); Albumin, Serum 4.1 g/dL (3.4-4.8); Alkaline Phosphatase 63 U/L (35-104); Anion Gap 11 (5-15); BUN 16 mg/dL (4-19); BUN/Creat Ratio 17.7 RATIO (10-20); Calcium,Total 9.6 mg/dL (7.6-11.0); Carbon Dioxide 24.8 mmol/L (21.0-32.0); Chloride 106 mmol/L (98-108); Cholesterol 199 mg/dL (<=200); Creatinine, Serum 0.89 mg/dL (0.70-1.20); EST Glomerular Filtration Rate 63 (>60); Globulin 2.9 g/dL (2.2-4.2); Glucose 99 mg/dL (70-99); High Density Lipoprotein 47 mg/dL; Low Density Lipoprotein Calc. 92 mg/dL; Potassium 4.1 mmol/L (3.3-5.1); Sodium Level 142 mmol/L (133-145); Total Bilirubin 0.47 mg/dL (0.00-1.30); Triglycerides 298 mg/dL; Very Low Density Lipoprotein 60 mg/dL (5-40); cholesterol:hdl ratio screen 4.21
[2025-01-11 12:10] LABS: Vitamin B12 > 4000 pg/mL (180-914)
== END | disposition home or self-care (01) ==
LOC: MTLAB 08:51
PROVIDERS: PCP Family Medicine; Referring Provider Family Medicine; Visit Provider Family Medicine
DX: I10 Essential (primary) hypertension (principal); E78.5 Hyperlipidemia, unspecified; D51.9 Vitamin B12 deficiency anemia, unspecified
CPT/HCPCS: 36415; 80053; 80061; 82607; 85025